=== PATIENT | male | born 1955 | race African-American/Black ===

== ENCOUNTER 2019-06-06 20:12 | Inpatient (IN) | payer MEDICARE ==
[2019-06-06 20:46] LABS: #Eosinphils 0.1 thou/uL (0.0-0.7); #Lymphocytes 1.4 thou/uL (1.20-3.40); #Monocytes 0.4 thou/uL (0.11-0.59); %Basophils 0.9 % (0.0-1.0); %Eosinophils 1.6 % (0.0-10.0); %Lymphocytes 36.8 % (21.0-51.0); %Monocytes 9.4 % (0.0-10.0); %Neutrophils 51.3 % (42.0-75.0); Hemoglobin 14.4 g/dL (14.0-18.0); Mean Corpuscular HGB CONC 33.7 g/dL (32.0-36.0); Mean Corpuscular Volume 71.2 fL (78.0-98.0); Mean Platelet Volume 10.9 fL (7.4-10.4); Platelet Count 126 thou/uL (130-400); RBC Distribution Width 13.3 % (11.5-14.5); Red Blood Cell (RBC) Count 5.99 mill/uL (4.70-6.10); White Blood Cell (WBC) Count 3.9 thou/uL (4.8-10.8)
--- NOTE | 2019-06-06 21:03 | RAD ---
PORTABLE AP CHEST X-RAY: 06/06/19 HISTORY: Syncope and collapse. COMPARISON: 05/17/19. FINDINGS: Dual lead left subclavian AICD device remains in place. The cardiac silhouette remains enlarged. The pulmonary vasculature is within normal limits. The lungs are clear. There has been no interval change from prior exam. IMPRESSION: No acute cardiopulmonary process. POS: [facility]
[2019-06-06 21:05] LABS: ALT (SGPT) 16 U/L (8-55); AST (SGOT) 15 U/L (5-34); Albumin 4.3 g/dL (3.4-4.8); Alkaline Phosphatase 53 U/L (40-150); Anion Gap 15 mmol/L (10-20); BUN (Urea Nitrogen) 21 mg/dL (8.4-25.7); Bilirubin, Total 0.5 mg/dL (0.2-1.2); Calc. Creatinine Clearance 0 mL/min (70-130); Calcium 9.4 mg/dL (7.8-10.44); Carbon Dioxide 23 mmol/L (23-31); Chloride 106 mmol/L (98-107); Estimated GFR-MDRD 70; Globulin 2.9 g/dL (2.4-3.5); Glucose 111 mg/dL (80-115); Potassium 3.8 mmol/L (3.5-5.1); Protein, Total 7.2 g/dL (5.8-8.1); Sodium 140 mmol/L (136-145)
[2019-06-06] MEDS ORDERED: hydrALAZINE 20 MG/ML VIAL SLOW IVP PRN (22:28)
[2019-06-06] MEDS ORDERED: Bisacodyl 5 MG TAB PO PRN (22:28)
[2019-06-06] MEDS ORDERED: cloNIDine 0.1 MG TAB PO PRN (22:28)
[2019-06-06] MEDS ORDERED: Acetaminophen 325 MG TAB PO PRN (22:28)
[2019-06-06] MEDS ORDERED: Nitroglycerin 0.4 MG TAB (25 Tab Bottle) SL PRN (22:28)
[2019-06-06] MEDS ORDERED: Loratadine 10 MG TAB PO PRN (22:28)
[2019-06-06] MEDS ORDERED: Sodium Chloride 0.65% Nasal 44 ML BOT EA NARE PRN (22:28)
[2019-06-06] MEDS ORDERED: Benzonatate 100 MG CAP PO PRN (22:28)
[2019-06-06] MEDS ORDERED: Ondansetron PF 4 MG/2 ML Vial IVP PRN (22:28)
[2019-06-06] MEDS ORDERED: Senokot S 8.6-50 MG TAB PO PRN (22:28)
[2019-06-06] MEDS ORDERED: Calcium Carbonate 500 MG ChewTAB PO PRN (22:28)
[2019-06-06] MEDS ORDERED: Diabetic Tussin 200 MG/10 ML UDCUP PO PRN (22:28)
[2019-06-06] MEDS ORDERED: Mag-Al 1200 mg/1200 mg/30 ML UDCUP PO PRN (23:30)
[2019-06-07 00:05] LABS: Troponin I 0.012 ng/mL (< 0.028)
[2019-06-07] MEDS: Sodium Chloride 0.9% 1,000 ML IV SCH (00:05)
--- NOTE | 2019-06-07 00:10 | HP ---
PRIMARY CARE PHYSICIAN: Out of town. CHIEF COMPLAINT: Passing out. HISTORY OF PRESENTING ILLNESS: Mr. Forbes is a pleasant 63-year-old Afro-[place] male with past medical history of cardiomyopathy with AICD in place as well as history of hypertension, chronic low back pain, and CVA in 2016, who presented to the ER with above-mentioned complaint. History is mainly obtained by the patient himself and electronic medical records have been reviewed. Mr. Forbes reports that he has been feeling fine up until this morning. 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 He remembers all of this episodes and denies any prodrome of symptoms. He denies any recent illnesses, fever, or chills. He denies any chest pain, shortness of breath today or in the last few days. He has not noticed any excessive swelling or fluid retention either. He was down on the floor for few seconds but according to his daughter present in the room, the quaker members felt that he was not breathing and they could not feel a pulse, so they started to do CPR and EMS was called. The patient was awake and had pulses for the EMS, but he did have vomiting multiple times on the scene. He denied getting a shock from his defibrillator tonight. He was brought into the ER and received Zofran en route. Upon presentation to the emergency room, his blood pressure was 157/97 with a pulse of 70, and he was saturating 100% on room air. His 12-lead EKG showed atrial paced rhythm without any acute ST or T-wave changes. His chest x-ray was negative for any evidence of pulmonary edema or infiltrates. His AICD was interrogated and it was normal without any evidence of recent arrhythmia or any shocks today. His cardiac enzymes were also within normal limits as was his rest of his blood work. He has chronic thrombocytopenia and his platelet count was 126. He feels much better now and is quite comfortable. He was, however, seen in the emergency room two weeks ago for complaints of hiccups and today also describes that he does get heartburn easily. Otherwise, he denies any recent illnesses. PAST MEDICAL HISTORY: 1. History of cardiomyopathy versus bradycardia requiring AICD placement. The patient is a poor historian and he does not have EMR in our system. 2. Hypertension. 3. Chronic low back pain. He follows up with Pain injections by Dr. Mac. He last received three steroid injections about a week ago. 4. CVA in 2016 with multiple mini strokes. PAST SURGICAL HISTORY: 1. ICD placement 2014. 2. Hernia repair. PSYCHIATRIC HISTORY: None. SOCIAL HISTORY: He lives at home with family. Denies any drug, alcohol, or tobacco abuse. FAMILY HISTORY: No significant family history of coronary artery disease or stroke. ALLERGIES: NO KNOWN MEDICATION ALLERGIES. CURRENT MEDICATIONS: As listed in the ER records: 1. Plavix 75 mg daily. 2. Protonix 40 mg daily. 3. Tamsulosin 0.4 mg daily. 4. Tizanidine 2 mg at bedtime. 5. Entresto daily. REVIEW OF SYSTEMS: A 14-point review of system is done. It is negative except for those mentioned in the history and physical. LABORATORY DATA: CBC shows WBCs 3.9, which was 4.0 two weeks ago, platelet count of 126, otherwise unremarkable. Serum chemistries essentially within normal limit. Troponin less than 0.010. BNP 103. Chest x-ray by my review shows no evidence of pleural effusion, edema, or infiltrate. PHYSICAL EXAMINATION: VITAL SIGNS: Most recent blood pressure 141/85, pulse is 63, respirations 19, temperature 98.9, saturating 98% on room air. GENERAL: No acute distress. Lying comfortably in bed. Family is at bedside. He is awake, alert, and oriented x3. HEENT: Mucous membrane is moist and pink. No oropharyngeal exudate or erythema. Head is normocephalic and atraumatic. Pupils are equal and reactive to light and accommodation. Extraocular movement intact. NECK: Supple without any lymphadenopathy, JVD, or bruit. CHEST: Clear to auscultation without any wheezing, rales, or rhonchi. Rate and rhythm are regular without any murmurs, rubs, or gallops. ABDOMEN: Soft, nontender, nondistended. He does not have any epigastric or right upper quadrant tenderness. No rebound, guarding, or rigidity. EXTREMITIES: Free of any cyanosis, clubbing, or edema. NEUROLOGICAL: Nonfocal. SKIN: Free of any rashes or bruises. Feels warm and dry to touch. PSYCHIATRIC: Normal affect. IMPRESSION AND PLAN: 1. Syncope. It is unclear as to what transpired in the quaker. It is not clear if he actually lost the pulse. CPR was initiated just because somebody could not find a pulse. Nevertheless, he will be admitted on telemetry unit for further evaluation. We will go ahead and obtain a transthoracic echocardiogram as he reports that one has not been done in a while. His AICD was interrogated and has been working fine. We will also obtain orthostatics as most of his symptoms suggest vasovagal episode rather than a cardiac or neurogenic episode. We will also obtain a carotid Doppler ultrasound given his history of cerebrovascular accident and as for the same reason, we will obtain an MRI of the brain, though the likely heard of a stroke is rather low given the presentation with syncope without any focal neurological deficits. Transient ischemic attack can be likely. We will restart his cardio prudent medication including Plavix and Entresto for now. He does not appear clinically dehydrated, but we will resuscitate him with gentle IV fluids given few episodes of vomiting that he has. Otherwise, symptomatic and supportive care will be initiated. We will also continue serial cardiac enzymes. Also, check urinalysis to rule out urinary tract infection as a cause of syncopal episode, though he denies any dysuria or frequency. He does complain of heartburn, which could have led to his vasovagal episode. We will continue his Protonix and add Maalox p.r.n. 2. Cardiomyopathy status post AICD. Continue his home medications of Plavix and Entresto. He is on THANG inhibitor. He is not on any beta laurie or aspirin at this time, and the reasons are unknown. 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 3. Hypertension. Resume Entresto for now and add p.r.n. antihypertensives. 4. Chronic back pain. The patient is quite comfortable for now. 5. Code status, full code discussed with the patient. DISPOSITION: Mr. Forbes is currently being admitted to observation unit on telemetry for workup for syncope. Estimated length of stay at this time is less than 2 midnights. Further management will depend upon his clinical course. Job ID: [id number]
[2019-06-07 01:28] LABS: Bacteria/HPF None Seen HPF (None Seen); Bilirubin Negative (Negative); Blood, Urine Negative (Negative); Clarity Clear (Clear); Glucose, Urine (Dipstick) Normal (Negative); Leukocyte Negative Leu/uL (Negative); Nitrite Negative (Negative); Protein, Urine (Dipstick) 10 mg/dL (Neg-Trace); RBC/HPF 0-3 HPF (0-3); Squamous Epithelial None Seen HPF (0-3); Urobilinogen Normal mg/dL (Less than 2); WBC/HPF 0-3 HPF (0-3)
[2019-06-07 01:31] LABS: Urine Culture Reflex No No
[2019-06-07 02:52] LABS: Anion Gap 10 mmol/L (10-20); BUN (Urea Nitrogen) 19 mg/dL (8.4-25.7); Calc. Creatinine Clearance 59 mL/min (70-130); Calcium 9.4 mg/dL (7.8-10.44); Carbon Dioxide 28 mmol/L (23-31); Chloride 106 mmol/L (98-107); Estimated GFR-MDRD 68; Glucose 187 mg/dL (80-115); Sodium 140 mmol/L (136-145)
[2019-06-07 02:56] LABS: Troponin I 0.039 ng/mL (< 0.028)
[2019-06-07 03:00] LABS: #Lymphocytes 0.7 thou/uL (1.20-3.40); #Monocytes 0.3 thou/uL (0.11-0.59); #Neutrophils 5.9 thou/uL (1.40-6.50); %Basophils 0.2 % (0.0-1.0); %Eosinophils 0.3 % (0.0-10.0); %Lymphocytes 9.6 % (21.0-51.0); %Monocytes 4.3 % (0.0-10.0); %Neutrophils 85.7 % (42.0-75.0); Hemoglobin 13.7 g/dL (14.0-18.0); Mean Corpuscular HGB CONC 33.9 g/dL (32.0-36.0); Mean Corpuscular Hemoglobin 24.2 pg (27.0-31.0); Mean Corpuscular Volume 71.3 fL (78.0-98.0); Mean Platelet Volume 10.6 fL (7.4-10.4); Platelet Count 114 thou/uL (130-400); RBC Distribution Width 13.1 % (11.5-14.5); Red Blood Cell (RBC) Count 5.68 mill/uL (4.70-6.10); White Blood Cell (WBC) Count 6.9 thou/uL (4.8-10.8)
[2019-06-07] MEDS ORDERED: Famotidine 20 MG TAB PO SCH (09:00)
[2019-06-07] MEDS: Sacubitril 49 MG/Valsartan 51 MG TABLET PO SCH ×2 (09:32→22:05)
[2019-06-07] MEDS: Enoxaparin Sodium 40 MG/0.4 ML SYRINGE SC SCH (09:32)
[2019-06-07] MEDS: Clopidogrel Bisulfate 75 MG TAB PO SCH (09:32)
--- NOTE | 2019-06-07 11:06 | ULT ---
CAROTID ULTRASOUND: Comparison: None. History: Syncope. Technique: Multiplanar grayscale and color doppler images were obtained in a carotid ultrasound. Spec tral analysis of the doppler waveforms were performed. FINDINGS: No significant plaque is seen in either internal or common carotid artery. The doppler waveforms are normally. Peak systolic velocity in the right ICA is 72 cm/sec. Peak systolic velocity in the right CCA is 91 c m/sec. The right ICA/CCA ratio is 0.8 Peak systolic velocity in the left ICA is 66 cm/sec. Peak systolic velocity in the left CCA is 91 cm/ sec. The left ICA/CCA ratio is 0.7. Both vertebral arteries demonstrate antegrade flow without focal stenosis. IMPRESSION: 1. No significant abnormality. POS: [facility]
--- NOTE | 2019-06-07 16:25 | PDOC.HOSPP ---
- Subjective Subjective: no chest pain or sob now feels better family at bedside He sees a twister tender and EP physician out of [place] area - Objective Vital Signs & Weight: Vital Signs (12 hours) Temp Pulse Resp BP BP Pulse Ox 06/07/19 15:17 98.4 F 54 L 16 124/81 98 06/07/19 12:47 98.0 F 60 20 138/78 98 06/07/19 07:56 97.8 F 52 L 16 123/71 97 06/07/19 05:00 98.4 F 66 16 127/59 L 98 Weight Weight 160 lb 2 oz I&O: 06/06/19 06/07/19 06/08/19 06:59 06:59 06:59 Intake Total 600 Output Total 400 Balance -400 600 Result Diagrams: 06/07/19 02:20 06/07/19 02:20 ROS - Review of Systems All systems: All other ROS were reviewed and found negative. - Medication Medications: Active Medications Generic Name Dose Route Start Last Admin Trade Name Davidq PRN Reason Stop Dose Admin Clopidogrel Bisulfate 75 mg 06/07/19 09:00 06/07/19 09:32 Plavix PO 75 mg DAILY MAHIN Administration Enoxaparin Sodium 40 mg 06/07/19 09:00 06/07/19 09:32 Lovenox SC 40 mg 0900 MAHIN Administration Sodium Chloride 1,000 mls @ 50 mls/hr 06/06/19 22:30 06/07/19 00:05 Normal Saline 0.9% IV 1,000 mls .Q20H MAHIN Administration Pantoprazole Sodium 40 mg 06/07/19 09:00 06/07/19 09:32 Protonix PO 40 mg DAILY MAHIN Administration Sacubitril/Valsartan 1 tab 06/07/19 09:00 06/07/19 09:32 Entresto 49 Mg-51 Mg Tablet PO 1 tab BID MAHIN Administration - Exam NAD, awake alert Eye: PERRL, anicteric sclera ENT: normocephalic atraumatic, moist mucosa Neck: supple, no JVD Heart: RRR, no murmur Respiratory: no wheezes, no rales Gastrointestinal: soft, non-tender, normal bowel sounds Extremities: no cyanosis, no clubbing Neurological: CN's grossly intact, no focal deficits Musculoskeletal: normal tone, normal strength Psychiatric: normal affect, A&O x 3 Hosp A/P (1) V-tach Code(s): I47.2 - VENTRICULAR TACHYCARDIA Status: Acute (2) Syncope Code(s): R55 - SYNCOPE AND COLLAPSE Status: Acute (3) Cardiomyopathy Code(s): I42.9 - CARDIOMYOPATHY, UNSPECIFIED Status: Chronic (4) HTN (hypertension) Code(s): I10 - ESSENTIAL (PRIMARY) HYPERTENSION Status: Chronic Qualifiers: Hypertension type: essential hypertension Qualified Code(s): I10 - Essential (primary) hypertension (5) BPH (benign prostatic hyperplasia) Code(s): N40.0 - BENIGN PROSTATIC HYPERPLASIA WITHOUT LOWER URINRY TRACT SYMP Status: Chronic Qualifiers: Lower urinary tract symptom presence: symptoms absent Qualified Code(s): N40.0 - Benign prostatic hyperplasia without lower urinary tract symptoms - Plan last defibrillator shock he had was 1 yr back hemostable now will consult , has multiple episodes of vtach mostly non sustained low rate on aicd interrogation change status to inpatient might need amiodarone/antiarrhymthmics based on ef await echo results continue plavix, flomax, entresto, will add small dose lopressor.
[2019-06-07] MEDS: Metoprolol Tartrate 25 MG TAB PO SCH (22:05)
[2019-06-08 04:59] VITALS: BMI 27.2
[2019-06-08] MEDS: Sacubitril 49 MG/Valsartan 51 MG TABLET PO SCH ×2 (08:45→20:46)
[2019-06-08] MEDS: Metoprolol Tartrate 25 MG TAB PO SCH ×2 (08:47→20:46)
[2019-06-08] MEDS: Enoxaparin Sodium 40 MG/0.4 ML SYRINGE SC SCH (08:47)
[2019-06-08] MEDS: Clopidogrel Bisulfate 75 MG TAB PO SCH (08:47)
--- NOTE | 2019-06-08 11:40 | CON ---
DATE OF CONSULTATION: REASON FOR CONSULTATION: Syncope. HISTORY OF PRESENT ILLNESS: Mr. Forbes is a 63-year-old gentleman. 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 Some other worship members were able to get him on the ground. They said there was no pulse and they started CPR and the ambulance then was called and he was brought to [facility]. He has history of apparently a cardiomyopathy. He said he underwent cardiac catheterization, did not have any obstructive coronary artery disease according to his understanding. He did have a defibrillator implantation. The patient is feeling fine now. He did not have chest pain with this. MEDICATIONS: 1. Tamsulosin 0.4 mg twice a day. 2. Clopidogrel. 3. Entresto. 4. Metoprolol. ALLERGIES: NONE KNOWN. SOCIAL HISTORY: Lives at home with his family. PSYCHIATRIC HISTORY: Negative. PREVIOUS SURGICAL HISTORY: Defibrillator in 2015, [employer]. OTHER HISTORY: History of chronic low back pain. REVIEW OF SYSTEMS: CONSTITUTIONAL: No significant weight gain or loss. VISION: No changes. HEARING: No changes. PULMONARY: No cough or wheezing. GASTROINTESTINAL: No nausea, vomiting, or diarrhea. SKIN: No rashes. NEUROLOGIC: No unilateral weakness or numbness. PSYCHIATRIC: No unusual depression or anxiety. HEMATOLOGIC: No unusual bruising. GENITOURINARY: No burning with urination. PHYSICAL EXAMINATION: GENERAL: This is a pleasant 63-year-old gentleman, resting comfortably, in no distress. VITAL SIGNS: Blood pressure 135/81; pulse is 60, it is regular. HEENT: Eyes; sclerae are nonicteric. Mouth; mucous membranes moist. NECK: Supple. No lymphadenopathy. LUNGS: Clear. No wheezing, rales, or rhonchi. CARDIAC: Normal S1. Normal S2. There is no murmur, rub, or gallop. ABDOMEN: Soft and nontender. No hepatosplenomegaly. EXTREMITIES: Warm and dry. No clubbing or cyanosis. There is no edema. NEUROLOGIC: He is alert and oriented. PERTINENT LABORATORY DATA: Hemoglobin is 13.7. Creatinine is 1.28. BNP 103.6. Troponin peak 0.039. IMAGING DATA: The pacemaker defibrillator was apparently interrogated and from my understanding show dysrhythmias. EKG shows atrial paced, ventricular sensed rhythm. ASSESSMENT: 1. Syncopal episode of unknown etiology. 2. From his history, nonischemic cardiomyopathy. PLAN: 1. 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 2. We will try to interrogate this device to make sure there has not been any arrhythmias. Job ID: [id number]
[2019-06-08] MEDS: Sodium Chloride 0.9% 1,000 ML IV SCH (12:44)
--- NOTE | 2019-06-08 12:49 | CON ---
DATE OF CONSULTATION: 06/08/2019 REASON FOR CONSULTATION: Syncope. REQUESTING CONSULTATION: Wyatt Rausch MD HISTORY OF PRESENTING ILLNESS: Dread Forbes is a 63-year-old gentleman. He has a known history of cardiomyopathy and evidently has a history of ventricular tachycardia. He had a defibrillator implanted ([employer] dual-chamber device) in 2014. He is subsequently moved to the [facility], and he is followed by Dr. Rausch. He was in his usual state of health until 2 days ago on 06/06/2019 when he was singing in the choir at [employer] and felt lightheaded and hot. He then lost consciousness. He is unclear how long he was out, but the witnesses think that it was less than a minute. He was resuscitated by bystanders, someone performed chest compressions as they felt that he did not have a palpable pulse. By the time EMS had arrived, he already had regained consciousness. There was no evidence of postictal state. Because he has a defibrillator implanted, it was interrogated in the emergency room and did not find any malignant arrhythmias to correlate with his event. I was asked to reinterrogate and confirm this fact. Currently, he is without symptoms. He has had no subsequent symptoms of chest pain, lightheadedness, shortness of breath, or syncope. He has been on telemetry and has remained in sinus rhythm with atrial pacing. No ventricular events. PAST MEDICAL HISTORY: Significant for, 1. Cardiomyopathy, unclear whether this is ischemia or [id number], but evidently was severe enough to warrant a defibrillator implantation in 2014. 2. Evidence of ventricular tachycardia based on stored electrograms from his interrogated defibrillator today. Most of these events have been nonsustained life of the device. However, in the last year, he has had a number of nonsustained events and a few sustained events, which were successfully pace terminated with his defibrillator most recently, May 10. He has never had a defibrillator shock since it was implanted. This does not correlate with his event on 06/06. Ironically on that day, his device reported no arrhythmias whatsoever either atrial or ventricular. 3. Remote history of CVA, unclear etiology, but evidently he had a cerebellar infarct a couple of years ago for which he was treated conservatively. CURRENT MEDICATIONS: See reconciled list in chart. FAMILY HISTORY: Significant for heart disease and hypertension. SOCIAL HISTORY: The patient does not smoke, drink heavily, use illicit drugs. REVIEW OF SYSTEMS: CONSTITUTIONAL: No fever, chills, night sweats, or other constitutional findings. HEENT: No change in vision or hearing. NEUROLOGIC: No TIAs, strokes or seizures. PULMONARY: No reactive airway disease, obstructive lung disease, or recurrent pneumonias. GASTROINTESTINAL: No acid peptic disease, melena, or hematochezia. GENITOURINARY: No frequency or dysuria. CARDIOVASCULAR: No claudication. ENDOCRINE: No diabetes or thyroid dysfunction. HEMATOLOGIC: No history of blood dyscrasias. MUSCULOSKELETAL: No arthritis, arthralgias or gout. PSYCHIATRIC: No depression or anxiety. DERMATOLOGIC: No rashes or skin cancer. AUTOIMMUNE: No autoimmune disease. Except as outlined in the HPI. PHYSICAL EXAMINATION: VITAL SIGNS: Blood pressure 130/70, pulse 70 and regular, respirations 18. NECK: Supple with no obvious JVD, sitting at a 45-degree angle. HEART: Demonstrates regular rate. Normal S1, S2. LUNGS: Clear with symmetric breath sounds. ABDOMEN: Soft. EXTREMITIES: Without any edema. SKIN: Warm and dry. IMAGING STUDIES: Electrocardiogram demonstrates atrial pacing, ventricular sensing, narrow QRS complex, device was interrogated again today by me. Device is a [employer] device implanted in 2014. He has an estimated 3 years longevity remaining on the device from a battery standpoint. He has had multiple events of nonsustained VT over the last year, none of them lasting more than 5 to 10 seconds, except for a few that lasted 16 to 17 seconds requiring overdrive pacing. Overdrive pacing was successful in terminating these arrhythmias on every occasion and none of these correlate with the patient's events from June 06. MEDICAL DECISION MAKING: I had a 15-minute discussion Mr. Forbes and his family. We talked about treatment options and alternatives. His symptoms certainly sound worrisome for malignant arrhythmia; however, the device that is implanted is functioning properly, and while it has reported episodes of ventricular tachycardia as recently as May 10, he had absolutely no episodes on the day of the event. Because he had some prodrome of nausea and a hot sensation prior to losing consciousness, it is more likely that this is neurally mediated mechanism as opposed to an arrhythmic one. RECOMMENDATION: 1. Would consider beta-laurie therapy to treat presumed neurocardiogenic syncope. 2. Would continue with ICU prescription unchanged. Job ID: [id number]
--- NOTE | 2019-06-08 18:19 | PDOC.HOSPP ---
- Subjective Subjective: feels better, no further episodes of passing out or palpitations no chest pain or sob - Objective Vital Signs & Weight: Vital Signs (12 hours) Temp Pulse Resp BP Pulse Ox 06/08/19 16:19 98.0 F 50 L 17 124/82 95 06/08/19 12:15 98.2 F 50 L 18 155/86 H 96 06/08/19 08:47 96 06/08/19 07:06 99.6 F 55 L 16 135/81 97 Weight Weight 163 lb 9.6 oz I&O: 06/07/19 06/08/19 06/09/19 06:59 06:59 06:59 Intake Total 3560 880 Output Total 400 2225 180 Balance -400 1335 700 Result Diagrams: 06/07/19 02:20 06/07/19 02:20 ROS - Review of Systems All systems: All other ROS were reviewed and found negative. - Medication Medications: Active Medications Generic Name Dose Route Start Last Admin Trade Name Freq PRN Reason Stop Dose Admin Clopidogrel Bisulfate 75 mg 06/07/19 09:00 06/08/19 08:47 Plavix PO 75 mg DAILY MAHIN Administration Enoxaparin Sodium 40 mg 06/07/19 09:00 06/08/19 08:47 Lovenox SC 40 mg 0900 MAHIN Administration Metoprolol Tartrate 25 mg 06/07/19 21:00 06/08/19 08:47 Lopressor PO 25 mg BID MAHIN Administration Pantoprazole Sodium 40 mg 06/07/19 09:00 06/08/19 08:47 Protonix PO 40 mg DAILY MAHIN Administration Sacubitril/Valsartan 1 tab 06/07/19 09:00 06/08/19 08:45 Entresto 49 Mg-51 Mg Tablet PO 1 tab BID MAHIN Administration Sodium Chloride 10 ml 06/08/19 09:00 06/08/19 08:47 Flush - Normal Saline IVF 10 ml Q12HR MAHIN Administration - Exam NAD, awake alert Eye: PERRL, anicteric sclera ENT: no oropharyngeal lesions, moist mucosa Neck: supple, no JVD Heart: RRR, no murmur Respiratory: no wheezes, no rales Gastrointestinal: soft, non-tender, non-distended, normal bowel sounds Neurological: CN's grossly intact, no focal deficits Psychiatric: normal affect, A&O x 3 Hosp A/P (1) V-tach Code(s): I47.2 - VENTRICULAR TACHYCARDIA Status: Acute (2) Syncope Code(s): R55 - SYNCOPE AND COLLAPSE Status: Acute (3) Cardiomyopathy Code(s): I42.9 - CARDIOMYOPATHY, UNSPECIFIED Status: Chronic (4) HTN (hypertension) Code(s): I10 - ESSENTIAL (PRIMARY) HYPERTENSION Status: Chronic Qualifiers: Hypertension type: essential hypertension Qualified Code(s): I10 - Essential (primary) hypertension (5) BPH (benign prostatic hyperplasia) Code(s): N40.0 - BENIGN PROSTATIC HYPERPLASIA WITHOUT LOWER URINRY TRACT SYMP Status: Chronic Qualifiers: Lower urinary tract symptom presence: symptoms absent Qualified Code(s): N40.0 - Benign prostatic hyperplasia without lower urinary tract symptoms - Plan echo shows ef of 25% cardo and ep consultations were done is on lopressor, entresto, plavix, flomax await records from his cardiologists office from [facility]. hemostable dc plan per cardio/EP adv
[2019-06-09] MEDS: Enoxaparin Sodium 40 MG/0.4 ML SYRINGE SC SCH (09:27)
[2019-06-09] MEDS: Clopidogrel Bisulfate 75 MG TAB PO SCH (09:27)
[2019-06-09] MEDS: Metoprolol Tartrate 25 MG TAB PO SCH ×2 (09:27→20:48)
[2019-06-09] MEDS: Sacubitril 49 MG/Valsartan 51 MG TABLET PO SCH ×2 (09:27→20:49)
[2019-06-09] MEDS ORDERED: Communication Order-Pharmacy FS SCH (12:30)
--- NOTE | 2019-06-09 12:32 | PDOC.HOSPP ---
- Subjective Subjective: no chest pain or palp is ambulating in room no sob or new complaints - Objective Vital Signs & Weight: Vital Signs (12 hours) Temp Pulse Resp BP Pulse Ox 06/09/19 12:03 98.0 F 53 L 20 125/81 98 06/09/19 07:30 98.5 F 61 20 148/95 H 99 06/09/19 04:00 98.1 F 50 L 18 121/73 99 Weight Weight 163 lb 9.6 oz I&O: 06/08/19 06/09/19 06/10/19 06:59 06:59 06:59 Intake Total 3560 880 300 Output Total 2225 180 Balance 1335 700 300 Result Diagrams: 06/07/19 02:20 06/07/19 02:20 ROS - Review of Systems All systems: All other ROS were reviewed and found negative. - Medication Medications: Active Medications Generic Name Dose Route Start Last Admin Trade Name Freq PRN Reason Stop Dose Admin Clopidogrel Bisulfate 75 mg 06/07/19 09:00 06/09/19 09:27 Plavix PO 75 mg DAILY MAHIN Administration Enoxaparin Sodium 40 mg 06/07/19 09:00 06/09/19 09:27 Lovenox SC 40 mg 0900 MAHIN Administration Metoprolol Tartrate 25 mg 06/07/19 21:00 06/09/19 09:27 Lopressor PO 25 mg BID MAHIN Administration Pantoprazole Sodium 40 mg 06/07/19 09:00 06/09/19 09:27 Protonix PO 40 mg DAILY MAHIN Administration Sacubitril/Valsartan 1 tab 06/07/19 09:00 06/09/19 09:27 Entresto 49 Mg-51 Mg Tablet PO 1 tab BID MAHIN Administration Sodium Chloride 10 ml 06/08/19 09:00 06/09/19 09:28 Flush - Normal Saline IVF 10 ml Q12HR MAHIN Administration - Exam NAD, awake alert Eye: PERRL, anicteric sclera ENT: no oropharyngeal lesions, moist mucosa Neck: supple, no JVD Heart: RRR, no murmur Respiratory: no wheezes, no rales Gastrointestinal: soft, non-tender, normal bowel sounds Extremities: no cyanosis, no edema Skin: normal turgor, no lesions Neurological: CN's grossly intact, no focal deficits Musculoskeletal: normal tone, no muscle wasting Psychiatric: normal affect, A&O x 3 Hosp A/P (1) V-tach Code(s): I47.2 - VENTRICULAR TACHYCARDIA Status: Acute (2) Syncope Code(s): R55 - SYNCOPE AND COLLAPSE Status: Resolved (3) Cardiomyopathy Code(s): I42.9 - CARDIOMYOPATHY, UNSPECIFIED Status: Chronic (4) HTN (hypertension) Code(s): I10 - ESSENTIAL (PRIMARY) HYPERTENSION Status: Chronic Qualifiers: Hypertension type: essential hypertension Qualified Code(s): I10 - Essential (primary) hypertension (5) BPH (benign prostatic hyperplasia) Code(s): N40.0 - BENIGN PROSTATIC HYPERPLASIA WITHOUT LOWER URINRY TRACT SYMP Status: Chronic Qualifiers: Lower urinary tract symptom presence: symptoms absent Qualified Code(s): N40.0 - Benign prostatic hyperplasia without lower urinary tract symptoms - Plan echo shows ef of 25% is on entresto, plavix, lopressor, flomax his 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
[2019-06-09] MEDS: Tamsulosin HCl 0.4 MG CAP PO SCH (20:48)
[2019-06-10] MEDS: Metoprolol Tartrate 25 MG TAB PO SCH ×2 (08:55→21:26)
[2019-06-10] MEDS: Clopidogrel Bisulfate 75 MG TAB PO SCH (08:55)
[2019-06-10] MEDS: Enoxaparin Sodium 40 MG/0.4 ML SYRINGE SC SCH (08:55)
[2019-06-10] MEDS: Sacubitril 49 MG/Valsartan 51 MG TABLET PO SCH ×2 (08:55→21:26)
--- NOTE | 2019-06-10 11:28 | PDOC.HOSPP ---
- Subjective Subjective: no chest pain or palp feels good - Objective Vital Signs & Weight: Vital Signs (12 hours) Temp Pulse Resp BP Pulse Ox 06/10/19 07:40 100 06/10/19 07:20 97.8 F 57 L 20 121/78 100 06/10/19 04:00 97.3 F L 52 L 19 127/81 98 06/10/19 00:00 59 L 135/80 97 Weight Weight 163 lb 9.6 oz I&O: 06/09/19 06/10/19 06/11/19 06:59 06:59 06:59 Intake Total 880 1380 300 Output Total 180 Balance 700 1380 300 Result Diagrams: 06/07/19 02:20 06/07/19 02:20 ROS - Review of Systems All systems: All other ROS were reviewed and found negative. - Medication Medications: Active Medications Generic Name Dose Route Start Last Admin Trade Name Freq PRN Reason Stop Dose Admin Clopidogrel Bisulfate 75 mg 06/07/19 09:00 06/10/19 08:55 Plavix PO 75 mg DAILY MAHIN Administration Enoxaparin Sodium 40 mg 06/07/19 09:00 06/10/19 08:55 Lovenox SC 06/10/19 22:00 40 mg 0900 MAHIN Administration Metoprolol Tartrate 25 mg 06/07/19 21:00 06/10/19 08:55 Lopressor PO 25 mg BID MAHIN Administration Pantoprazole Sodium 40 mg 06/07/19 09:00 06/10/19 08:55 Protonix PO 40 mg DAILY MAHIN Administration Sacubitril/Valsartan 1 tab 06/07/19 09:00 06/10/19 08:55 Entresto 49 Mg-51 Mg Tablet PO 1 tab BID MAHIN Administration Sodium Chloride 10 ml 06/08/19 09:00 06/10/19 08:55 Flush - Normal Saline IVF 10 ml Q12HR MAHIN Administration Tamsulosin HCl 0.4 mg 06/09/19 21:00 06/09/19 20:48 Flomax PO 0.4 mg HS MAHIN Administration - Exam NAD, awake alert Eye: PERRL, anicteric sclera ENT: no oropharyngeal lesions, moist mucosa Neck: supple, no JVD Heart: RRR, no murmur Respiratory: no wheezes, no rales Gastrointestinal: soft, non-tender, normal bowel sounds Extremities: no cyanosis, no edema Neurological: CN's grossly intact, no focal deficits Musculoskeletal: normal tone, normal strength Psychiatric: normal affect, A&O x 3 Hosp A/P (1) V-tach Code(s): I47.2 - VENTRICULAR TACHYCARDIA Status: Acute (2) Syncope Code(s): R55 - SYNCOPE AND COLLAPSE Status: Resolved (3) Cardiomyopathy Code(s): I42.9 - CARDIOMYOPATHY, UNSPECIFIED Status: Chronic (4) HTN (hypertension) Code(s): I10 - ESSENTIAL (PRIMARY) HYPERTENSION Status: Chronic Qualifiers: Hypertension type: essential hypertension Qualified Code(s): I10 - Essential (primary) hypertension (5) BPH (benign prostatic hyperplasia) Code(s): N40.0 - BENIGN PROSTATIC HYPERPLASIA WITHOUT LOWER URINRY TRACT SYMP Status: Chronic Qualifiers: Lower urinary tract symptom presence: symptoms absent Qualified Code(s): N40.0 - Benign prostatic hyperplasia without lower urinary tract symptoms - Plan hemostable for cath in am continue plavix, entresto, lopressor, flomax ef of 25% with recurrent vtac (mostly non sustained) for cath in am
[2019-06-10] MEDS: Tamsulosin HCl 0.4 MG CAP PO SCH (21:26)
[2019-06-11] MEDS: Clopidogrel Bisulfate 75 MG TAB PO SCH (05:49)
[2019-06-11] MEDS ORDERED: Sodium Chloride 0.9% 1,000 ML IV SCH (06:00)
[2019-06-11] MEDS ORDERED: Lidocaine 1% (PF) 30 ML VIAL ONE (06:39)
[2019-06-11] MEDS ORDERED: Midazolam HCl 2 mg/2 ml Vial ONE (07:13)
[2019-06-11] MEDS ORDERED: Fentanyl 100 MCG/2 ML VIAL ONE (07:13)
[2019-06-11] MEDS ORDERED: Atropine Sulfate 1 mg/10 ml Syringe ONE (07:28)
[2019-06-11] MEDS ORDERED: Nitroglycerin 100MG/250ML BOT 250 ML ONE (08:04)
[2019-06-11] MEDS ORDERED: Sodium Chloride 0.9% 200 ML IV PRN (08:32)
[2019-06-11] MEDS ORDERED: Acetaminophen/Codeine 30-300mg Tablet PO PRN ×2 (08:32)
[2019-06-11] MEDS ORDERED: Nitroglycerin 0.4 MG TAB (25 Tab Bottle) SL PRN (08:32)
[2019-06-11 10:51] LABS: #Lymphocytes 0.9 thou/uL (1.20-3.40); #Monocytes 0.3 thou/uL (0.11-0.59); #Neutrophils 3.6 thou/uL (1.40-6.50); %Basophils 0.1 % (0.0-1.0); %Eosinophils 0.9 % (0.0-10.0); %Lymphocytes 18.5 % (21.0-51.0); %Monocytes 6.3 % (0.0-10.0); %Neutrophils 74.1 % (42.0-75.0); Hemoglobin 13.6 g/dL (14.0-18.0); Mean Corpuscular HGB CONC 32.2 g/dL (32.0-36.0); Mean Corpuscular Hemoglobin 23.1 pg (27.0-31.0); Mean Corpuscular Volume 71.6 fL (78.0-98.0); Mean Platelet Volume 10.4 fL (7.4-10.4); Platelet Count 112 thou/uL (130-400); RBC Distribution Width 13.4 % (11.5-14.5); Red Blood Cell (RBC) Count 5.91 mill/uL (4.70-6.10); White Blood Cell (WBC) Count 4.9 thou/uL (4.8-10.8)
[2019-06-11 10:52] LABS: Anion Gap 9 mmol/L (10-20); BUN (Urea Nitrogen) 18 mg/dL (8.4-25.7); Calc. Creatinine Clearance 71 mL/min (70-130); Calcium 8.9 mg/dL (7.8-10.44); Carbon Dioxide 26 mmol/L (23-31); Chloride 107 mmol/L (98-107); Estimated GFR-MDRD 84; Glucose 100 mg/dL (80-115); Sodium 138 mmol/L (136-145)
[2019-06-11] MEDS ORDERED: Iopamidol 370 76% 100 ML VIAL ONE (11:03)
[2019-06-11 11:24] LABS: Band 1 % (5-11); Eosinophils 2 % (0-10); Lymphocytes 20 % (21-51); MDiff Complete? YES; Microcytosis SLIGHT = 6-15 cells (100X) (0-5/hpf); Monocytes 2 % (0-10); Neutrophil 75 % (42-75); Platelet Morphology Comment Appears Decreased; Polychromasia SLIGHT = 2-3 cells (100X) (0-2/hpf)
[2019-06-11] MEDS: Metoprolol Tartrate 25 MG TAB PO SCH ×2 (11:30→20:39)
--- NOTE | 2019-06-11 13:08 | PDOC.HOSPP ---
- Subjective Subjective: no chest pain or palp or sob - Objective Vital Signs & Weight: Vital Signs (12 hours) Temp Pulse Resp BP Pulse Ox 06/11/19 08:45 97.5 F L 67 16 139/83 98 06/11/19 04:00 98.3 F 49 L 18 127/78 98 Weight Weight 160 lb 8 oz I&O: 06/10/19 06/11/19 06/12/19 06:59 06:59 06:59 Intake Total 1380 1620 Output Total 400 Balance 1380 1220 Result Diagrams: 06/11/19 09:51 06/11/19 09:51 ROS - Review of Systems All systems: All other ROS were reviewed and found negative. - Medication Medications: Active Medications Generic Name Dose Route Start Last Admin Trade Name Lucia PRN Reason Stop Dose Admin Clopidogrel Bisulfate 75 mg 06/07/19 09:00 06/11/19 05:49 Plavix PO 75 mg DAILY MAHIN Administration Sodium Chloride 1,000 mls @ 100 mls/hr 06/11/19 06:00 06/11/19 05:48 Normal Saline 0.9% IV 1,000 mls .Q10H MAHIN Administration Metoprolol Tartrate 25 mg 06/07/19 21:00 06/11/19 11:30 Lopressor PO Not Given BID MAHIN Pantoprazole Sodium 40 mg 06/07/19 09:00 06/11/19 05:49 Protonix PO 40 mg DAILY MAHIN Administration Sodium Chloride 10 ml 06/08/19 09:00 06/11/19 09:37 Flush - Normal Saline IVF Not Given Q12HR MAHIN Tamsulosin HCl 0.4 mg 06/09/19 21:00 06/10/19 21:26 Flomax PO 0.4 mg HS MAHIN Administration - Exam NAD, awake alert Eye: PERRL, anicteric sclera ENT: no oropharyngeal lesions, moist mucosa Neck: supple, no JVD Heart: RRR, no murmur Respiratory: no wheezes, no ronchi Gastrointestinal: soft, non-tender, normal bowel sounds Extremities: no cyanosis, no edema Neurological: CN's grossly intact, no focal deficits Musculoskeletal: normal tone, normal strength Psychiatric: normal affect, A&O x 3 Hosp A/P (1) V-tach Code(s): I47.2 - VENTRICULAR TACHYCARDIA Status: Resolved (2) Syncope Code(s): R55 - SYNCOPE AND COLLAPSE Status: Resolved (3) Cardiomyopathy Code(s): I42.9 - CARDIOMYOPATHY, UNSPECIFIED Status: Chronic (4) HTN (hypertension) Code(s): I10 - ESSENTIAL (PRIMARY) HYPERTENSION Status: Chronic Qualifiers: Hypertension type: essential hypertension Qualified Code(s): I10 - Essential (primary) hypertension (5) BPH (benign prostatic hyperplasia) Code(s): N40.0 - BENIGN PROSTATIC HYPERPLASIA WITHOUT LOWER URINRY TRACT SYMP Status: Chronic Qualifiers: Lower urinary tract symptom presence: symptoms absent Qualified Code(s): N40.0 - Benign prostatic hyperplasia without lower urinary tract symptoms - Plan had cath this am, had long segment narrowing or rca, no intervention also had vasovagal episode with local anesthesia hemostable dc plan per cardio adv continue lopressor, plavix, entresto, flomax
--- NOTE | 2019-06-11 13:49 | PQF ---
ELIZABETH JOSEPH, ALEX CHILD MD [id number] [facility]-296 [id number] CLINICAL DOCUMENTATION IMPROVEMENT CLARIFICATION FORM: ICD-10 Updated PLEASE DO AN ADDENDUM TO THE PROGRESS NOTE WITH ANY DOCUMENTATION UPDATES OR ADDITIONS AND CARRY THROUGH TO DC SUMMARY. THANK YOU. DATE: 06/11/2019 ATTN:DR. ADAMS Please exercise your independent, professional judgment in responding to the clarification form. Clinical indicators are provided on the bottom of this form for your review. Please check appropriate box(s): [ ] NSTEMI (ID type I) [ x] NSTEMI due to Demand Ischemia (AMI Type II) [ ] Demand Ischemia without ID [ x] Other diagnosis _type 2 ID secondary to vtac episodes and syncope [ ] Unable to determine In addition, please specify: Present on Admission (POA): [ x ] Yes [ ] No [ ] Unable to determine CLINICAL INDICATORS - SIGNS / SYMPTOMS / LABS 06/07 (ANDREA) LAST DEFIBRILLATOR SHOCK HE HAD WAS 1 YEAR BACK, HAS MULTIPLE EPISODES OF V-TACH MOSTLY NONSUSTAINED LOW RATE ON AICD INTERROGATION. 06/07 TROPONIN I 0.039 06/11 DIAGNOSTIC LEFT HEART CATH: LVEF 25% GLOBAL HYPOKINESIS, LEFT MAIN NORMAL, LAD 30% MID CIRCUMFLEX CO DOMINANT, NO OBSTRUCTIVE PLAQUE, RCA SMALL LONG LESION 80%, LESION APPROX 50MM. RISK: HX CEREBROVASCULAR DISEASE, HTN,CARDIOMYOPATHY (H & P/ MARA) AICD PLACEMENT TREATMENTS: CARDIOLOGY/EP CONSULT CAROTID DOPPLER 06/07 HEART CATH 06/11 THANK YOU ! MIKEL (This form is maintained as a part of the permanent medical record) 2014 [employer], [employer]. All Rights Reserved [email or web address] [phone] MTDD
--- NOTE | 2019-06-11 17:18 | EKG ---
Test Reason : SYNCOPE Blood Pressure : / mmHG Vent. Rate : 050 BPM Atrial Rate : 050 BPM P-R Int : 194 ms QRS Dur : 104 ms QT Int : 428 ms P-R-T Axes : 088 -56 020 degrees QTc Int : 390 ms Atrial-paced rhythm Pulmonary disease pattern Left anterior fascicular block Nonspecific T wave abnormality Abnormal ECG Confirmed by CLARICE ALVES ([id number]), fan mail editor PAULINA VILLALTA ([id number]) on 06/11/2019 5:18:15 PM Referred By: Confirmed By:CLARICE ALVES
--- NOTE | 2019-06-11 17:41 | PRG ---
DATE OF SERVICE: 06/11/2019 SUBJECTIVE: Mr. Forbes seems to be doing well after his heart catheterization. During heart catheterization at the time of the lidocaine injection for the catheter access, there were symptoms of prodrome and symptoms of syncope as in the [facility] when he came in. His blood pressure was low and mildly bradycardic as well. He seems to recover quickly with instituted bolus and atropine injection. Currently, he has no signs of angina and no PND, orthopnea, or lower extremity edema. Groin catheterization sites without reaction. No further dizziness or loss of consciousness. Rest of 12-point review of system otherwise unremarkable. OBJECTIVE: VITAL SIGNS: Blood pressure is 110/69, heart rate 53, respiratory rate 16, and temperature 98.1 degrees Fahrenheit. GENERAL: Alert and oriented man, in no apparent distress. NECK: Supple. Jugular veins not distended. CHEST: Coarse, no crackles. Left precordial ICD insertion site is well healed. ABDOMEN: Benign. Bowel sounds are positive. EXTREMITIES: Lower extremities without edema, clubbing, or cyanosis. Pulses are adequate. NEUROLOGIC: The patient is nonfocal. MUSCULOSKELETAL: Without joint swelling or deformity. SKIN: Without rash. DATABASE: Telemetry strips reveal sinus rhythm, no ventricular tachyarrhythmias. The heart catheterization today revealed nonocclusive coronary artery disease only. LVEF by echo from 06/07/2019 is 25% to 30%. ASSESSMENT AND PLAN: Mr. Forbes is a 63-year-old man with likely nonischemic cardiomyopathy with nonocclusive coronary disease on heart catheterization today, severely reduced left ventricular function, prior implantable cardiac defibrillator implant, who was admitted after a syncopal spell at [facility]. The episode appears to be vasovagal effect, recurred at the time of IV starting, clearly vasovagal in etiology as well during heart catheterization this morning. Although, he had mild bradycardia, the blood pressure was low as well, likely combination made him pass out on the table as well, and very likely similar episodes could happen at the [facility] as well prior to admission. I doubt ventricular arrhythmias is a main cause for this, even though nonsustained episodes are noted at times on the telemetry and ICD monitor. For now, ATP therapies are successful and no aggressive antiarrhythmia medication is necessary. Dr. Rausch is planning to change his heart failure medication to reduce hypotensive episodes and I agree with the increasing base pacing rate and adding rate response to it. I discussed this with a [employer] mechanical service representative, who should be able to interrogate and make these changes on this [employer] device. I also discussed with Dr. Rausch and the family on this finding. I have to see him back as an outpatient for routine monitoring of his ICDs. We discussed the etiology of vasovagal syncope and potentially avoidance of syncope by supine posture and avoiding dehydration. Job ID: [id number]
[2019-06-11] MEDS: Tamsulosin HCl 0.4 MG CAP PO SCH (20:38)
[2019-06-11] MEDS ORDERED: Rosuvastatin 20 MG TAB PO SCH (21:00)
[2019-06-12] MEDS ORDERED: Aspirin 81 mg Enteric Coated Tablet PO SCH (09:00)
[2019-06-12] MEDS ORDERED: Lisinopril 5 MG TAB PO SCH (09:00)
[2019-06-12] MEDS: Clopidogrel Bisulfate 75 MG TAB PO SCH (09:33)
--- NOTE | 2019-06-12 09:51 | PRG ---
DATE OF SERVICE: 06/12/2019 SUBJECTIVE: Mr. Forbes feels very well today. He said he felt better, really almost immediately after the pacemaker was changed from a lower rate of 50 to 60. Also, the pacemaker defibrillator was placed in the rate responsive mode. OBJECTIVE: VITAL SIGNS: His blood pressure today is 120 systolic. Pulse is 60. LUNGS: Clear. CARDIAC: Normal S1, normal S2. ABDOMEN: Soft, nontender. EXTREMITIES: There is no edema. ASSESSMENT: 1. Cardiomyopathy with an ejection fraction of 25%. 2. Single-vessel coronary artery disease 80% long lesion in a small diameter vessel in the right coronary artery, codominant vessel, with an anomalous takeoff, best treated medically. 3. Previous pacemaker defibrillator. Rate has been increased. 4. Neurocardiogenic syncope. PLAN: 1. He is to go home on lisinopril 5 mg twice a day. 2. Metoprolol succinate 50 mg a day, dose maybe increased later. 3. Lisinopril 5 mg twice a day, dose maybe increased later. 4. Crestor 20 mg a day. 5. Plavix 75 mg a day. 6. He has to see us in the office in a couple of weeks. Job ID: [id number]
--- NOTE | 2019-06-12 10:05 | PDOC.HOSPP ---
- Subjective Subjective: was seen today at 10AM, i the follow-up of syncope. He does not have any complaints. - Objective Vital Signs & Weight: Vital Signs (12 hours) Temp Pulse Resp BP Pulse Ox 06/12/19 09:33 60 06/12/19 07:37 98.1 F 60 16 125/81 99 06/12/19 04:00 97.8 F 60 18 124/63 98 06/11/19 23:43 98.3 F 60 18 129/76 98 Weight Weight 160 lb 12.8 oz I&O: 06/11/19 06/12/19 06/13/19 06:59 06:59 06:59 Intake Total 1620 1090 Output Total 400 Balance 1220 1090 Result Diagrams: 06/11/19 09:51 06/11/19 09:51 ROS - Review of Systems All systems: All other ROS were reviewed and found negative. - Medication Medications: Active Medications Generic Name Dose Route Start Last Admin Trade Name Freq PRN Reason Stop Dose Admin Aspirin 81 mg 06/12/19 09:00 06/12/19 09:49 Ecotrin PO 81 mg DAILY MAHIN Administration Clopidogrel Bisulfate 75 mg 06/07/19 09:00 06/12/19 09:33 Plavix PO 75 mg DAILY MAHIN Administration Lisinopril 5 mg 06/12/19 09:00 06/12/19 09:33 Zestril PO 5 mg BID MAHIN Administration Metoprolol Succinate 50 mg 06/12/19 09:00 06/12/19 09:49 Toprol Xl PO 50 mg DAILY MAHIN Administration Pantoprazole Sodium 40 mg 06/07/19 09:00 06/12/19 09:34 Protonix PO 40 mg DAILY MAHIN Administration Rosuvastatin Calcium 20 mg 06/11/19 21:00 06/11/19 20:38 Crestor PO 20 mg HS MAHIN Administration Senna/Docusate Sodium 2 tab 06/06/19 22:28 06/11/19 16:06 Senokot S PO 2 tab BID PRN Administration Constipation Sodium Chloride 10 ml 06/08/19 09:00 06/12/19 09:34 Flush - Normal Saline IVF 10 ml Q12HR MAHIN Administration Tamsulosin HCl 0.4 mg 06/09/19 21:00 06/11/19 20:38 Flomax PO 0.4 mg HS MAHIN Administration - Exam Eye: PERRL, anicteric sclera Respiratory: CTAB, no wheezes, no rales, no ronchi, normal chest expansion, no tachypnea, normal percussion Gastrointestinal: soft, non-tender, non-distended, normal bowel sounds, no palpable masses Extremities: no cyanosis, no clubbing, no edema Psychiatric: normal affect, A&O x 3 Hosp A/P (1) Syncope Code(s): R55 - SYNCOPE AND COLLAPSE Status: Resolved (2) BPH (benign prostatic hyperplasia) Code(s): N40.0 - BENIGN PROSTATIC HYPERPLASIA WITHOUT LOWER URINRY TRACT SYMP Status: Acute Qualifiers: Lower urinary tract symptom presence: symptoms absent Qualified Code(s): N40.0 - Benign prostatic hyperplasia without lower urinary tract symptoms (3) Cardiomyopathy Code(s): I42.9 - CARDIOMYOPATHY, UNSPECIFIED Status: Chronic (4) HTN (hypertension) Code(s): I10 - ESSENTIAL (PRIMARY) HYPERTENSION Status: Chronic Qualifiers: Hypertension type: essential hypertension Qualified Code(s): I10 - Essential (primary) hypertension (5) V-tach Code(s): I47.2 - VENTRICULAR TACHYCARDIA Status: Resolved - Plan * Syncope- this is felt to be due to Vaso-vagal response * He has been cleared for discharge by Cardiology
[2019-06-12 12:16] VITALS: BP 145/80; TEMP 98
--- NOTE | 2019-06-12 12:43 | DIS ---
DATE OF ADMISSION: 06/07/2019 DATE OF DISCHARGE: 06/12/2019 DISCHARGE DISPOSITION: Home. PRIMARY DISCHARGE DIAGNOSES: 1. Syncope. 2. Cardiomyopathy. 3. Hypertension. 4. Dyslipidemia. 5. Benign prostatic hypertrophy. DISCHARGE MEDICATIONS: Include, 1. Crestor 20 mg at bedtime. 2. Toprol-XL 50 mg daily. 3. Lisinopril 5 mg twice daily. 4. Plavix 75 mg a day. 5. Aspirin 81 mg daily. 6. Flomax 0.4 mg twice a day. 7. Protonix 40 mg daily. 8. Baclofen 10 mg q.8 as needed. PROCEDURES DONE DURING THE ADMISSION: The patient had a cardiac catheterization, which showed an EF, which was estimated at 25% with global hypokinesis. The left main was normal. There was 30% stenosis in the mid LAD. The RCA, there was a small, long segment of 80% stenosis. The patient also had an echocardiogram in which the ejection fraction was estimated at 25% to 30%. There was some E to A flow reversal noted suggestive of diastolic dysfunction. CODE STATUS: Full code. ALLERGIES: NO KNOWN DRUG ALLERGIES. HOSPITAL COURSE: Mr. Forbes is a pleasant 63-year-old gentleman, who presented to the emergency room after having a syncopal episode at [facility]. The full details of which are outlined in the history and physical. He was admitted and evaluated by both Cardiology as well as Electrophysiology. He underwent cardiac catheterization and echocardiogram with the above-mentioned results. He did have some RCA occlusion, which was thought to be not amenable to intervention. This will be treated medically. Also, he did have some short courses of ventricular tachycardia, which was asymptomatic and not felt to be the etiology of the syncope. The syncope is thought to be vasovagal in nature. He had an episode during his hospitalization. He has been instructed on some nonpharmacological ways of managing this and his medications were adjusted and he has subsequently able to be discharged home in stable condition. Job ID: [id number]
== END 2019-06-12 14:17 | disposition home or self-care (01) | DRG 281 ==
LOC: ERS 20:12 → 2SW 23:37 → OBSVTOIN 06-07 15:08 → 2NO 06-07 18:26
PROVIDERS: ADMIT Internal Medicine; ATTEND Internal Medicine
PROC: 4A023N8 Measurement of Cardiac Sampling and Pressure, Bilateral, Percutaneous Approach (ICD-10-PCS; principal; 2019-06-11)
PROC: B2151ZZ Fluoroscopy of Left Heart using Low Osmolar Contrast (ICD-10-PCS; 2019-06-11)
PROC: B2111ZZ Fluoroscopy of Multiple Coronary Arteries using Low Osmolar Contrast (ICD-10-PCS; 2019-06-11)
DX: I47.2 Ventricular tachycardia (principal); I21.A1 Myocardial infarction type 2; I42.9 Cardiomyopathy, unspecified; R55 Syncope and collapse; I10 Essential (primary) hypertension; G89.29 Other chronic pain; M54.9 Dorsalgia, unspecified; N40.0 Benign prostatic hyperplasia without lower urinary tract symptoms; Z86.73 Personal history of transient ischemic attack (TIA), and cerebral infarction without residual deficits; Z79.899 Other long term (current) drug therapy; Z79.01 Long term (current) use of anticoagulants; Z95.810 Presence of automatic (implantable) cardiac defibrillator
CPT/HCPCS: 36415; 71045; 76942; 80048; 80053; 80061; 81001; 83880; 84484; 85025; 93005; 93306; 93458; 93798; 93880; 99152; 99153; C1769; J0461; J1644; J1650; J2001; J2250; J3010; Q9967

== ENCOUNTER 2019-07-23 11:52 | Inpatient (IN) | payer MEDICARE ==
[2019-07-23] MEDS ORDERED: Ondansetron PF 4 MG/2 ML Vial ONE (12:57)
[2019-07-23] MEDS ORDERED: Morphine 4 MG/ML VIAL ONE (12:57)
[2019-07-23 14:17] LABS: CKMB 1.3 ng/mL (0-6.6)
[2019-07-23] MEDS ORDERED: Enoxaparin Sodium 80 MG/0.8 ML SYRINGE ONE (14:24)
[2019-07-23 16:13] VITALS: BMI 25.4
[2019-07-23] MEDS ORDERED: Ondansetron PF 4 MG/2 ML Vial IVP PRN (19:30)
[2019-07-23 19:49] LABS: Troponin I 0.029 ng/mL (< 0.028)
[2019-07-23] MEDS: Tamsulosin HCl 0.4 MG CAP PO SCH (20:41)
[2019-07-23] MEDS: Enoxaparin Sodium 40 MG/0.4 ML SYRINGE SC SCH (20:41)
[2019-07-23] MEDS: Rosuvastatin 20 MG TAB PO SCH (20:41)
[2019-07-23] MEDS ORDERED: Senokot 8.6 MG TAB PO SCH (21:00)
--- NOTE | 2019-07-23 22:07 | ULT ---
EXAM: Bilateral lower extremity venous ultrasound HISTORY: Pulmonary embolism; Recent fall COMPARISON: None TECHNIQUE: Multiplanar grayscale and color Doppler images were obtained in a bilateral lower extremit y venous ultrasound. Spectral analysis of the Doppler waveforms were performed. FINDINGS: The bilateral common femoral vein, profunda femoral veins, superficial femoral veins, and p opliteal veins are normal in appearance without visible thrombus. These vessels demonstrate normal compression, flow, and augmentation. The bilateral posterior tibial veins and greater saphenous veins are patent without evidence of throm bus. IMPRESSION: No evidence of DVT.
--- NOTE | 2019-07-23 22:28 | HP ---
CHIEF COMPLAINT: Syncope. HISTORY OF PRESENT ILLNESS: Mr. Forbes is a very pleasant 63-year-old gentleman with past medical history significant for coronary artery disease with left heart catheterization last month by Dr. Rausch, ischemic cardiomyopathy with EF of 25% status post AICD placement in 2014, and previous history of neurocardiogenic syncope diagnosed last month at this facility, who presented to the emergency department in [place] with another episode of carlo syncope. The patient was in his usual state of health up until this morning. He got up, was in the kitchen to take his medications, and had a prodrome of nausea and lightheadedness just prior to his syncopal event. The patient fell forward in the kitchen biting his lower lip. His and son were in the house, although did not witness the event. They did hear him fall. The states that he regained consciousness within about 30 seconds, and asked what it happened. He denies any prodrome of chest pain or shortness of breath. He had no palpitations. He was brought to the [place] Emergency Department for further workup and treatment. In that ER, he did have a CT of his facial bones which showed no obvious acute fracture. He did have a large hematoma and soft tissue swelling anterior to the mandible into the right of the midline. Head CT showed no acute intracranial abnormality or injury. He was transferred to our facility for higher level of care. CTA of the chest was also performed, which showed a very small peripheral pulmonary artery embolus, which the radiologist felt was likely chronic. As mentioned, the patient was admitted here at this facility about a month ago with similar complaints. At that time, his AICD was interrogated and showed no arrhythmogenic cause of syncope. His lacemaker, Dr. Rausch was consulted and the patient underwent left heart catheterization, which showed a long 80% stenosis in the RCA, not amenable to intervention. He had a mild stenosis noted in the mid LAD. His echocardiogram showed an ejection fraction of 25% to 30% with grade 2 diastolic dysfunction. It was felt at that time that the patient had had an episode of neurocardiogenic syncope. REVIEW OF SYSTEMS: A 12-point review of systems performed and is negative except that stated above. The patient has been in his usual state of health. He has been able to participate in cardiac rehab 2 times a week. He specifically denies any chest pain, shortness of breath, orthopnea, or palpitations. No recent illnesses or sick contacts. PAST MEDICAL HISTORY: 1. Ischemic cardiomyopathy with EF of 25% to 30%, status post [employer] AICD placement in 2014. 2. Paroxysmal nonsustained ventricular tachycardia. 3. Hypertension. 4. Benign prostatic hypertrophy. 5. CVA in 2016. 6. Gastroesophageal reflux disease. PAST SURGICAL HISTORY: 1. ICD placement in 2014. 2. Left heart catheterization last month with Dr. Rausch. 3. Hernia repair. SOCIAL HISTORY: The patient lives at home with his family. He denies any drug, alcohol, or tobacco abuse. He is currently retired. FAMILY HISTORY: Noncontributory. ALLERGIES: NO KNOWN DRUG ALLERGIES. CURRENT MEDICATIONS: 1. Omeprazole 40 mg one tablet p.o. daily. 2. Plavix 75 mg daily. 3. Fish oil 1000 mg orally once daily. 4. Crestor 20 mg p.o. at bedtime. 5. Tamsulosin 0.4 mg orally b.i.d. 6. Lisinopril 5 mg orally once daily. 7. Metoprolol succinate 50 mg one tablet daily. 8. Aspirin 81 mg daily. 9. Ranitidine 150 mg once daily at bedtime. 10. Senokot orally once daily. PHYSICAL EXAMINATION: VITAL SIGNS: Blood pressure is 154/93, pulse 60, O2 saturation is 100% on room air, respirations 20, temperature 97.9. GENERAL: This is an male who appears his stated age, resting comfortably in bed, in no acute distress. HEENT: The patient has a large hematoma present on his left bottom lip. NECK: Trachea is midline. No JVD. No carotid bruits. CV: S1 and S2. Regular rate and rhythm. No appreciable murmurs, rubs, or gallops. LUNGS: Regular respiratory rate and pattern, overall clear to auscultation bilaterally. ABDOMEN: Positive bowel sounds. Soft, nontender. EXTREMITIES: +1 pitting edema bilaterally. Both lower extremities are warm and well perfused. NEUROLOGICAL: Cranial nerves 2 through 12 are grossly intact. The patient is nonfocal. LABORATORY DATA: White blood cell count 3.5, hemoglobin 13, hematocrit 41.3%, platelets are 140. Sodium 143, potassium 3.9, chloride 108, BUN is 18, creatinine 1.36. AST 38, ALT 48, alkaline phosphatase 65. Troponin 0.029, 0.020 respectively. ASSESSMENT: 1. Syncope-the patient was admitted just last month for similar episode, and neurocardiogenic syncope was presumed. 2. Ischemic cardiomyopathy with EF 25%. 3. History of ventricular tachycardia. 4. AICD, [employer] in-situ. 5. Coronary artery disease, long 80% RCA lesion not amenable to intervention. 6. Hypertension. 7. BPH, on tamsulosin. 8. Small peripheral PA embolus/appears chronic. PLAN: At this time, we will admit the patient to the observation unit. We will not repeat full syncopal workup, as the patient was just admitted last month and had echo and carotid Dopplers. We will interrogate the patient's device to rule out any arrhythmogenic cause of syncope. The patient does not appear to be orthostatic for orthostatic vital signs. Given his presenting symptoms and risk factors and his cardiac history, we will consult his primary lacemaker, Dr. Rausch for any further recommendations for this patient. Regarding the small PE that was found, the patient does have mild bilateral swelling in his lower extremities, and is sedentary per his . We will perform bilateral venous Doppler to rule out DVTs. GI and DVT prophylaxis have been ordered. We will also order a magnesium level as well. Further recommendations based on hospital course. Job ID: [id number]
[2019-07-24 01:07] LABS: Bacteria/HPF 2+ HPF (None Seen); Bilirubin Negative (Negative); Blood, Urine Trace (Negative); Clarity Clear (Clear); Glucose, Urine (Dipstick) Normal (Negative); Leukocyte 500 Leu/uL (Negative); Nitrite Negative (Negative); Protein, Urine (Dipstick) Negative (Neg-Trace); Squamous Epithelial None Seen HPF (0-3); Urobilinogen Normal mg/dL (Less than 2); WBC/HPF Greater than 50 HPF (0-3)
[2019-07-24 01:08] LABS: Urine Culture Reflex Yes Yes
[2019-07-24] MEDS: cefTRIAXone\\ROCEPHIN 1 GM in Sodium Chloride 0.9% 100 ML IVPB SCH (03:19)
[2019-07-24 04:37] LABS: #Eosinphils 0.1 thou/uL (0.0-0.7); #Lymphocytes 1.1 thou/uL (1.20-3.40); #Monocytes 0.3 thou/uL (0.11-0.59); #Neutrophils 3.3 thou/uL (1.40-6.50); %Basophils 0.4 % (0.0-1.0); %Eosinophils 1.8 % (0.0-10.0); %Lymphocytes 22.5 % (21.0-51.0); %Monocytes 5.9 % (0.0-10.0); %Neutrophils 69.4 % (42.0-75.0); Hemoglobin 12.1 g/dL (14.0-18.0); Mean Corpuscular HGB CONC 33.4 g/dL (32.0-36.0); Mean Corpuscular Hemoglobin 24.1 pg (27.0-31.0); Mean Corpuscular Volume 72.2 fL (78.0-98.0); Mean Platelet Volume 9.8 fL (7.4-10.4); Platelet Count 141 thou/uL (130-400); RBC Distribution Width 12.6 % (11.5-14.5); Red Blood Cell (RBC) Count 5.02 mill/uL (4.70-6.10); White Blood Cell (WBC) Count 4.8 thou/uL (4.8-10.8)
[2019-07-24 05:38] LABS: Anion Gap 10 mmol/L (10-20); BUN (Urea Nitrogen) 12 mg/dL (8.4-25.7); Calc. Creatinine Clearance 65 mL/min (70-130); Calcium 8.7 mg/dL (7.8-10.44); Carbon Dioxide 26 mmol/L (23-31); Chloride 107 mmol/L (98-107); Estimated GFR-MDRD 80; Glucose 85 mg/dL (80-115); Potassium 3.7 mmol/L (3.5-5.1); Sodium 139 mmol/L (136-145)
[2019-07-24] MEDS: HYDROcodone/Acetaminophen 5/325 mg Tablet PO PRN (08:17)
[2019-07-24] MEDS: Fish Oil 1,000 MG CAP PO SCH (08:18)
[2019-07-24] MEDS: Lisinopril 5 MG TAB PO SCH (08:18)
[2019-07-24] MEDS: Famotidine 20 MG TAB PO SCH ×2 (08:18→20:11)
[2019-07-24] MEDS: Senokot 8.6 MG TAB PO SCH (08:18)
[2019-07-24] MEDS: Tamsulosin HCl 0.4 MG CAP PO SCH ×2 (08:18→20:11)
[2019-07-24] MEDS: Multivit, Therapeutic 1 TAB PO SCH (08:19)
[2019-07-24] MEDS: Clopidogrel Bisulfate 75 MG TAB PO SCH (11:01)
[2019-07-24] MEDS: Aspirin 81 mg Enteric Coated Tablet PO SCH (11:01)
--- NOTE | 2019-07-24 13:32 | CON ---
DATE OF CONSULTATION: 07/24/2019 REASON FOR CONSULTATION: Mr. Forbes is a pleasant 63-year-old man, who had a syncopal episode. HISTORY OF PRESENT ILLNESS: Mr. Forbes was recently hospitalized here. He had a syncopal episode that was ultimately found to be vasovagal. He has a nonischemic cardiomyopathy. 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 Despite numbing the skin, he had a vagal response before. Even any deep numbing was done and just the skin numb and he had a vagal episode, we had to give him atropine for. The patient was admitted at that point with a vagal episode. The patient had another episode of feeling weak and lightheaded and suddenly lost consciousness and hit his head as outlined in the chart. Blood pressure had been high prior to that episode. PHYSICAL EXAMINATION: VITAL SIGNS: Today, blood pressure 132/84, pulse 60. HEENT: Eyes; sclerae nonicteric. Mouth; mucous membranes moist. NECK: Supple. No lymphadenopathy. LUNGS: Clear. CARDIAC: Normal S1. Normal S2. There is no murmur, rub, or gallop. ABDOMEN: Soft, nontender. EXTREMITIES: Warm and dry. No clubbing, cyanosis, or edema. LABORATORY DATA: Peak troponin level is 0.029. Potassium is 3.7. The rhythm shows atrial paced, ventricular sensed rhythm. ASSESSMENT: 1. Recurrent vasovagal syncope. 2. Defibrillator was checked. There are no dysrhythmias. PLAN: 1. We stressed again to the patient if he can possibly sit down quickly, he will prevent injuries, although he did not have a lot of warning on this occasion. 2. We will increase paced rate up to 70, try to reduce the risk of a sudden onset of syncope. 3. Need to reduce tamsulosin once a day. Needs to get with urologist. Ideally would go off tamsulosin on some other agent. Job ID: [id number]
--- NOTE | 2019-07-24 18:04 | PDOC.HOSPP ---
- Subjective Encounter Date: 07/24/19 Encounter Time: 18:00 Subjective: f/u for recurrent syncope likely related to ventricular arrhythmia. Feel ok overall but has lip pain after hitting face while falling at home. - Objective Vital Signs & Weight: Vital Signs (12 hours) Temp Pulse Resp BP BP BP BP 07/24/19 15:14 98.4 F 70 16 129/81 07/24/19 11:45 98.4 F 60 16 132/84 07/24/19 08:18 60 07/24/19 07:15 97.8 F 60 16 121/66 137/77 136/79 Pulse Ox 07/24/19 15:14 98 07/24/19 11:45 99 07/24/19 08:18 07/24/19 07:15 98 Weight Weight 153 lb 1.6 oz I&O: 07/23/19 07/24/19 07/25/19 06:59 06:59 06:59 Intake Total 1270 Output Total 1050 Balance 220 Result Diagrams: 07/24/19 04:17 07/24/19 04:17 Additional Labs: Microbiology 07/24/19 01:08 Urine clean catch Urine Culture - Preliminary Gram Negative [facility] Tests 07/23/19 07/23/19 07/23/19 13:04 16:19 19:09 Troponin I 0.029 H 0.020 0.029 H Radiology Reviewed by me: Yes (LE dopplers - neg for DVT) EKG Reviewed by me: Yes (Tele - A-paced) Hospitalist ROS - Medication Medications: Active Medications Generic Name Dose Route Start Last Admin Trade Name Freq PRN Reason Stop Dose Admin Hydrocodone Bitart/Acetaminophen 1 tab 07/23/19 19:30 07/24/19 08:17 [place] 5/325 PO 1 tab Q4H PRN Administration Moderate Pain (4-6) Aspirin 81 mg 07/24/19 09:00 07/24/19 11:01 Ecotrin PO 81 mg DAILY MAHIN Administration Clopidogrel Bisulfate 75 mg 07/24/19 09:00 07/24/19 11:01 Plavix PO 75 mg DAILY MAHIN Administration Enoxaparin Sodium 40 mg 07/23/19 21:00 07/23/19 20:41 Lovenox SC 40 mg 2100 MAHIN Administration Famotidine 20 mg 07/24/19 09:00 07/24/19 08:18 Pepcid PO 20 mg BID MAHIN Administration Fish Oil 1,000 mg 07/24/19 09:00 07/24/19 08:18 Fish Oil PO 1,000 mg DAILY MAHIN Administration Ceftriaxone Sodium 1 gm/ 100 mls @ 200 mls/hr 07/24/19 04:00 07/24/19 03:19 Sodium Chloride IVPB 100 mls 0400 MAHIN Administration Lisinopril 5 mg 07/24/19 09:00 07/24/19 08:18 Zestril PO 5 mg DAILY MAHIN Administration Metoprolol Succinate 50 mg 07/24/19 09:00 07/24/19 11:01 Toprol Xl PO 50 mg DAILY MAHIN Administration Multivitamins 1 tab 07/24/19 09:00 07/24/19 08:19 Theragran PO 1 tab DAILY MAHIN Administration Pantoprazole Sodium 40 mg 07/24/19 09:00 07/24/19 08:18 Protonix PO 40 mg DAILY MAHIN Administration Rosuvastatin Calcium 20 mg 07/23/19 21:00 07/23/19 20:41 Crestor PO 20 mg HS MAHIN Administration Senna 1 tab 07/24/19 09:00 07/24/19 08:18 Senokot PO 1 tab DAILY MAHIN Administration - Exam General Appearance: NAD, awake alert Eye: PERRL, anicteric sclera ENT - other findings: superficial lower lip laceration, hemostatic, + edema, no missing teeth Neck: supple, symmetric, no JVD, no thyromegaly Heart: RRR, no murmur, no gallops, no rubs, normal peripheral pulses Respiratory: CTAB, no wheezes, no rales, no ronchi, normal chest expansion Gastrointestinal: soft, non-tender, non-distended, normal bowel sounds, no palpable masses Extremities: no cyanosis, no clubbing, no edema Skin: normal turgor, no lesions Neurological: cranial nerve grossly intact, no focal deficits, no new deficit Musculoskeletal: normal tone Psychiatric: normal affect, A&O x 3 Hosp A/P (1) Syncope Code(s): R55 - SYNCOPE AND COLLAPSE Status: Acute Plan: Likely due to ventricular arrhythmia, PM threshold increased, EP/Cardiology following (2) Ventricular tachycardia (paroxysmal) Code(s): I47.2 - VENTRICULAR TACHYCARDIA Status: Acute Plan: Continue Sotalol, ASA/Plavix (3) Ischemic cardiomyopathy Code(s): I25.5 - ISCHEMIC CARDIOMYOPATHY Status: Chronic Plan: Continue ASA/Plavix/Metoprolol/Lisinopril (4) UTI (urinary tract infection) Status: Acute Plan: Suspected, continue Rocephin IV daily, await final identification/sensitivities (5) HTN (hypertension) Code(s): I10 - ESSENTIAL (PRIMARY) HYPERTENSION Status: Chronic Qualifiers: Hypertension type: essential hypertension Qualified Code(s): I10 - Essential (primary) hypertension Plan: Resume home BP regimen - Plan plan discussed w/ family, DVT proph w/SCDs Stable currently Appreciated Cardiology/EP assistance PM reprogrammed per EP recs Local wound care or oral cavity Continue ASA/Plavix Likely home in 24h
[2019-07-24] MEDS ORDERED: Sotalol HCl 80 MG TAB PO SCH (19:45)
[2019-07-24] MEDS: Rosuvastatin 20 MG TAB PO SCH (20:10)
[2019-07-24] MEDS: Enoxaparin Sodium 40 MG/0.4 ML SYRINGE SC SCH (20:11)
[2019-07-25] MEDS: cefTRIAXone\\ROCEPHIN 1 GM in Sodium Chloride 0.9% 100 ML IVPB SCH (04:00)
[2019-07-25] MEDS: Famotidine 20 MG TAB PO SCH ×3 (07:46→20:01)
[2019-07-25] MEDS: HYDROcodone/Acetaminophen 5/325 mg Tablet PO PRN ×2 (07:46→21:19)
[2019-07-25] MEDS: Senokot 8.6 MG TAB PO SCH (07:47)
[2019-07-25] MEDS: Multivit, Therapeutic 1 TAB PO SCH (07:47)
[2019-07-25] MEDS: Sotalol HCl 80 MG TAB PO SCH ×2 (07:47→20:00)
[2019-07-25] MEDS: Fish Oil 1,000 MG CAP PO SCH (07:47)
[2019-07-25] MEDS: Lisinopril 5 MG TAB PO SCH (07:48)
[2019-07-25] MEDS: Aspirin 81 mg Enteric Coated Tablet PO SCH (07:48)
[2019-07-25] MEDS: Clopidogrel Bisulfate 75 MG TAB PO SCH (07:48)
[2019-07-25] MEDS ORDERED: Potassium Chloride 20 MEQ TAB PO SCH (09:00)
--- NOTE | 2019-07-25 09:59 | PRG ---
DATE OF SERVICE: 07/25/2019 SUBJECTIVE: Mr. Forbes is doing a bit well. He says he has some pain in the left great toe, but examining him, he is only minimally tender. He is still having some bleeding from his tongue. No chest pain or pressure. OBJECTIVE: VITAL SIGNS: Blood pressure 148/99. Pulse 70, it is paced, atrial paced, ventricular sensed. LUNGS: Clear. CARDIAC: Normal S1. Normal S2. ABDOMEN: Soft and nontender. EXTREMITIES: There is no edema. LABORATORY DATA: The potassium is 3.7. ASSESSMENT: 1. Syncopal episode, looks like it is related to ventricular arrhythmia. 2. Ventricular tachycardia. 3. Single-vessel coronary artery disease, best treated medically. 4. History of severe orthostatic hypotension. 5. Hypertension. PLAN: 1. Increase metoprolol to 100 mg a day. 2. Replete potassium. 3. He has been started on sotalol. 4. We will monitor him today and to go home tomorrow. Job ID: [id number]
--- NOTE | 2019-07-25 10:08 | PRG ---
DATE OF SERVICE: 07/25/2019 SUBJECTIVE: Mr. Forbes seems to be doing well overnight. No new symptoms noted. OBJECTIVE: VITAL SIGNS: Blood pressure is 142/99, heart rate 69, respiratory rate 16, and temperature 99.1 degrees Fahrenheit. GENERAL: Alert and oriented man, in no apparent distress. NECK: Supple. Jugular veins not distended. CHEST: Coarse. No crackles. HEART: Sounds are regular to rate and rhythm. No murmur or gallop. Precordial ICD insertion site is well healed. EXTREMITIES: Lower extremity, without edema. ABDOMEN: Benign. DATABASE: Telemetry strips reveal no further ventricular arrhythmias. Interrogation of the EKG from 07/25, at 7:19 a.m. reveals atrial paced rhythm, occasional PVCs, and QTc of 442 milliseconds. ASSESSMENT AND PLAN: Mr. Forbes is a 63-year-old man, who has history of nonischemic cardiomyopathy, likely functioning dual-chamber implantable cardioverter-defibrillator in place, had chronic syncopal episodes in the past, diagnosed to be vasovagal, but now admitted after an other syncopal event with significant facial injury associated to rapid ventricular tachycardia. The episode was well detected, and eventually, terminated by device. He has frequent nonsustained or short episodes even on the prior dates as noted on his ICD interrogation. My plan at this point, 1. We will initiate sotalol 120 mg twice a day for now. No proarrhythmia or significant QT prolongation is noted. Continue loading. We will likely be able to discharge him tomorrow, if he remains stable. Monitor for hypertension. 2. Dual-chamber ICD adequate function. 3. History of vasovagal syncope. Avoid dehydration. Consider support stockings. 4. Routine followup in the office. Job ID: [id number] [facility]
--- NOTE | 2019-07-25 11:23 | CON ---
DATE OF CONSULTATION: 07/24/2019 HISTORY OF PRESENT ILLNESS: I am seeing Mr. 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 His problems are: 1. Recurrent syncopal spells. a. Prior history of vasovagal syncope well documented. b. Current syncope though was associated with episodes of ventricular tachycardia with rapid rates requiring ATP therapy and eventual termination after the second try. 2. History of chronic congestive heart failure with nonischemic cardiomyopathy. 3. History of single-vessel coronary artery disease. a. 2D echo from 06/07/2019 shows LVEF of 25% to 30%, moderate LV enlargement, mild MR, [id number] aortic regurgitation, and mild TR. b. Left heart catheterization on 06/07/2019 showed a 25% of LVEF, 8% small elongated RCA lesion. c. Status post dual-chamber ICD implant on December 22, 2014, with a [employer] Energen Mini dual-chamber device. 4. History of hypertension. 5. History of CVA in 2016. 6. History of GERD and BPH. ALLERGIES: NONE NOTED. MEDICATIONS: At home include; 1. Omeprazole. 2. Plavix. 3. Fish oil supplement. 4. Crestor. 5. Tamsulosin. 6. Lisinopril. 7. Metoprolol succinate 50 mg once a day. 8. Aspirin 81 daily. 9. Ranitidine. 10. Senokot. SUBJECTIVE: Mr. Forbes was admitted after an episode of sudden fall as he states he was getting nauseated and dizzy and is walking then suddenly, he fell down and found himself coming back from a passing out spell shortly after that. He did bite his lower lip. Event was not witnessed, but the family heard him fall and the episode did not last beyond 30 seconds. He was brought in by the EMS. CT heads were revealing no acute fracture, but large hematoma of the lip. Transferred to our facility. Since admission, he has been doing fair. 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 ICD was interrogated, see separate note. Dr. Rausch has consulted me, hence the ventricular tachycardia episodes noted on the ICD interrogation. Currently, he is doing well. Denies angina. No CHF like symptoms. No PND, orthopnea, or lower extremity edema. No fever, chills, or cough and rest of 12-point review of system unremarkable. PAST MEDICAL HISTORY: Past history as above. He has been admitted to our facility in May with syncopal spell. At that point, no concomitant ventricular arrhythmias were documented, but he had clear vasovagal spell noted during heart catheterization, venipuncture as well. SOCIAL HISTORY: Lives with his family. Denies EtOH or drug abuse and is retired. FAMILY HISTORY: Not contributory. OBJECTIVE DATA: VITAL SIGNS: Blood pressure is 148/99, heart rate 69, respiratory rate 16, and temperature 99.1 degrees Fahrenheit. GENERAL: Alert and oriented man, in no apparent distress. NECK: Supple. Jugular veins not distended. HEENT: The lip is with hematoma and bandage. CHEST: Coarse. No crackles. HEART: Sounds are regular to rate and rhythm. No murmur or gallop. ABDOMEN: Benign. Bowel sounds positive. EXTREMITIES: Lower extremities without edema, clubbing, or cyanosis. Pulses are adequate. NEUROLOGIC: The patient is nonfocal. MUSCULOSKELETAL: Without joint swelling or deformity. SKIN: Without rash. The ICD insertion site is well healed. DATABASE: EKG reviewed revealing atrial paced rhythm, narrow QRS, the QT is about 400 milliseconds. Occasional PVCs are noted, which appear to be monomorphic. Left bundle inferior axis in morphology. The ICD was interrogated revealing a [employer] Mini ICD with adequate battery voltage with 2.5 years estimated longevity. The parameters are adequate. Sensing 5.4 mV in the atrium and 8 mV in the right ventricle. Impedances are normal at 383 and 448 ohms respectively. Ventricular tachycardia zone is programmed on per monitor at 150 and for therapy at 185 beats per minute. An episode of ventricular tachycardia noted on the day preceding the admission on 07/23/2019 at 7:25 a.m. corresponded to the time of his syncopal spell, sudden rapid ventricular arrhythmia noted with clear VA dissociation, cycle length about 300 milliseconds. ATP therapy was successfully terminating the episodes at the second try. Interrogation of the additional events reveal episodes of ventricular tachycardia since last reset in June, slow ventricular tachycardia episodes are seen. Nonsustained VT episodes are also noted. LABORATORY DATA: White cell count 4.8, hemoglobin 12.1, and platelet count is 141. Sodium 139, potassium 3.7, BUN is 12, and creatinine is 1.12. Troponin I 0.029, 0.02, and 0.029. The chest CT from 07/23/2019, shows no acute traumatic injury, cardiomegaly, small very peripheral pulmonary artery embolus, likely chronic. ASSESSMENT AND PLAN: Mr. Forbes is a 63-year-old man with history of congestive heart failure and one-vessel coronary artery disease, likely nonischemic cardiomyopathy with reduced left ventricular ejection fraction and adequate functioning, dual-chamber implantable cardioverter-defibrillator in place. He has had recurrent syncopal spells, previous diagnosed to be vasovagal, but at this time, also noted to have a concomitant ventricular tachycardia episodes. Further interrogations reveal frequent nonsustained and slightly slower, but short ventricular tachycardia events and the current syncopal spell is associated with for the longer episode about 25 seconds with rapid rates, which responded to the second round of ATP. This clearly could have been the cause of his syncope at this time. At this point, there is no obvious signs of new angina or ischemia involving this event. The episode could have been probed by his extra heartbeats and eventually was well detected and terminated by device. Nevertheless, the duration was likely caused his circulation to collapse transiently until the event terminated. We discussed treatment options. I think it is reasonable at this point to consider suppression, hence his renal function is in normal range and he has no sudden QT prolongation. We will attempt sotalol 120 mg twice a day will be initiated. His vital signs need to be monitored, but right now he is hypertensive. I am expecting him to tolerate it pretty well. In the couple of days, monitoring is reasonable. I discussed this with Dr. Rausch. He is agreeable at this point. No further ischemic evaluation is planned. We will continue to follow up with you. Thank you again for letting me participate in the care of this patient. Job ID: [id number]
--- NOTE | 2019-07-25 16:56 | EKG ---
Test Reason : Blood Pressure : / mmHG Vent. Rate : 068 BPM Atrial Rate : 068 BPM P-R Int : 208 ms QRS Dur : 102 ms QT Int : 416 ms P-R-T Axes : 037 -64 033 degrees QTc Int : 442 ms Electronic atrial pacemaker Left anterior fascicular block T wave abnormality, consider lateral ischemia Abnormal ECG When compared with ECG of 06-JUN-2019 20:33, QT has lengthened Confirmed by DR. Parisa OLIVAREZ ([id number]) on 07/25/2019 4:55:36 PM Referred By: CYNTHIA Confirmed By:DR. Parisa OLIVAREZ
--- NOTE | 2019-07-25 17:24 | PDOC.HOSPP ---
- Subjective Encounter Date: 07/25/19 Encounter Time: 17:20 Subjective: f/u for cardiogenic syncope secondary to V-tach. Adjustments to AICD/PM and initiated on Sotalol. No new issues reported. Feels fine today. - Objective Vital Signs & Weight: Vital Signs (12 hours) Temp Pulse Resp BP Pulse Ox 07/25/19 16:00 98.2 F 72 17 131/88 98 07/25/19 11:12 98.5 F 70 20 115/75 96 07/25/19 07:48 70 07/25/19 07:47 70 07/25/19 07:22 99.1 F 69 16 148/99 H 97 Weight Weight 152 lb 12.8 oz I&O: 07/24/19 07/25/19 07/26/19 06:59 06:59 06:59 Intake Total 1270 1440 Output Total 1050 700 Balance 220 740 Result Diagrams: 07/24/19 04:17 07/24/19 04:17 Additional Labs: Microbiology 07/24/19 01:08 Urine clean catch Urine Culture - Preliminary Presumptive Kleb/Enterobacter 07/24/19 01:08 Urine clean catch Urine Culture - Preliminary Gram Negative [facility] Tests 07/23/19 07/23/19 07/23/19 13:04 16:19 19:09 Troponin I 0.029 H 0.020 0.029 H EKG Reviewed by me: Yes (Tele - Paced in 70's) Hospitalist ROS - Medication Medications: Active Medications Generic Name Dose Route Start Last Admin Trade Name Freq PRN Reason Stop Dose Admin Hydrocodone Bitart/Acetaminophen 1 tab 07/23/19 19:30 07/25/19 07:46 [place] 5/325 PO 1 tab Q4H PRN Administration Moderate Pain (4-6) Aspirin 81 mg 07/24/19 09:00 07/25/19 07:48 Ecotrin PO 81 mg DAILY MAHIN Administration Enoxaparin Sodium 40 mg 07/23/19 21:00 07/24/19 20:11 Lovenox SC 40 mg 2100 MAHIN Administration Famotidine 20 mg 07/24/19 09:00 07/25/19 08:42 Pepcid PO 20 mg BID MAHIN Administration Fish Oil 1,000 mg 07/24/19 09:00 07/25/19 07:47 Fish Oil PO 1,000 mg DAILY MAHIN Administration Ceftriaxone Sodium 1 gm/ 100 mls @ 200 mls/hr 07/24/19 04:00 07/25/19 04:00 Sodium Chloride IVPB 100 mls 0400 MAHIN Administration Lisinopril 5 mg 07/24/19 09:00 07/25/19 07:48 Zestril PO 5 mg DAILY MAHIN Administration Multivitamins 1 tab 07/24/19 09:00 07/25/19 07:47 Theragran PO 1 tab DAILY MAHIN Administration Pantoprazole Sodium 40 mg 07/24/19 09:00 07/25/19 07:47 Protonix PO 40 mg DAILY MAHIN Administration Rosuvastatin Calcium 20 mg 07/23/19 21:00 07/24/19 20:10 Crestor PO 20 mg HS MAHIN Administration Senna 1 tab 07/24/19 09:00 07/25/19 07:47 Senokot PO 1 tab DAILY MAHIN Administration Sotalol HCl 120 mg 07/25/19 09:00 07/25/19 07:47 Betapace PO 120 mg BID MAHIN Administration Tamsulosin HCl 0.4 mg 07/24/19 21:00 07/24/19 20:11 Flomax PO 0.4 mg HS MAHIN Administration - Exam General Appearance: NAD, awake alert Eye: PERRL, anicteric sclera ENT - other findings: + edema of lower lips/abrasion Neck: supple, symmetric, no JVD, no thyromegaly Heart: no gallops, no rubs, normal peripheral pulses Respiratory: CTAB, no wheezes, no rales, no ronchi, normal chest expansion Gastrointestinal: soft, non-tender, non-distended, normal bowel sounds Extremities: no cyanosis, no clubbing, no edema Skin: normal turgor, no lesions Neurological: cranial nerve grossly intact, no focal deficits, no new deficit Musculoskeletal: normal tone, normal strength Psychiatric: normal affect, A&O x 3 Hosp A/P (1) Syncope Code(s): R55 - SYNCOPE AND COLLAPSE Status: Acute Plan: Secondary to #1, continue mgmt as outlined below (2) Ventricular tachycardia (paroxysmal) Code(s): I47.2 - VENTRICULAR TACHYCARDIA Status: Acute Plan: Continue Sotalol 120mg BID, telemetry monitoring (3) Ischemic cardiomyopathy Code(s): I25.5 - ISCHEMIC CARDIOMYOPATHY Status: Chronic Plan: See above (4) UTI (urinary tract infection) Status: Acute Plan: Continue Rocephin IV daily, await final sensitivities (5) HTN (hypertension) Code(s): I10 - ESSENTIAL (PRIMARY) HYPERTENSION Status: Chronic Qualifiers: Hypertension type: essential hypertension Qualified Code(s): I10 - Essential (primary) hypertension Plan: Stable, continue home BP regimen - Plan continue antibiotics, out of bed/ambulate, DVT proph w/SCDs Stable currently Appreciated Cardiology/EP assistance PM reprogrammed per EP recs Local wound care to oral cavity Continue ASA/Plavix Continue Sotalol 120mg BID Likely home in 24h
[2019-07-25] MEDS: Enoxaparin Sodium 40 MG/0.4 ML SYRINGE SC SCH (19:59)
[2019-07-25] MEDS: Rosuvastatin 20 MG TAB PO SCH (19:59)
[2019-07-25] MEDS: Tamsulosin HCl 0.4 MG CAP PO SCH (20:01)
[2019-07-26] MEDS: cefTRIAXone\\ROCEPHIN 1 GM in Sodium Chloride 0.9% 100 ML IVPB SCH (03:47)
[2019-07-26 07:57] VITALS: TEMP 98
[2019-07-26] MEDS: Lisinopril 5 MG TAB PO SCH (10:13)
[2019-07-26] MEDS: Senokot 8.6 MG TAB PO SCH (10:13)
[2019-07-26] MEDS: Multivit, Therapeutic 1 TAB PO SCH (10:14)
[2019-07-26] MEDS: Aspirin 81 mg Enteric Coated Tablet PO SCH (10:14)
[2019-07-26] MEDS: Fish Oil 1,000 MG CAP PO SCH (10:14)
[2019-07-26] MEDS: Sotalol HCl 80 MG TAB PO SCH (10:14)
[2019-07-26] MEDS ORDERED: Colchicine 0.6 MG TAB PO SCH (12:15)
[2019-07-26] MEDS ORDERED: Ibuprofen 800 MG TAB PO SCH (12:15)
[2019-07-26 13:28] VITALS: BP 138/69
--- NOTE | 2019-07-26 18:20 | PRG ---
DATE OF SERVICE: 07/26/2019 SUBJECTIVE: Mr. Forbes seems to be doing well. Yesterday at 4:30 p.m., he had a slow wide-complex rhythm, monomorphic run of PVCs up to 30 beats were seen. The episode was not very rapid and self-terminated. Was asymptomatic. No ICD discharge or therapy was necessary to stop the episode. Otherwise, he is feeling well. OBJECTIVE: VITAL SIGNS: Blood pressure is 138/69, heart rate 70, respiratory rate 16, temperature 98 degrees Fahrenheit. GENERAL: Alert and oriented man, in no apparent distress. NECK: Supple. Jugular veins not distended. CHEST: Coarse without crackles. Pacemaker insertion site is well healed. HEART: Sounds are regular rate and rhythm. No murmur or gallop. ABDOMEN: Benign. Bowel sounds positive. EXTREMITIES: Lower extremities without edema, clubbing, or cyanosis. DATABASE: EKG reviewed, revealing sinus rhythm with QTc not significantly prolonged about 450 msec. Telemetry strips otherwise negative apart from the wide-complex arrhythmia run. ASSESSMENT AND PLAN: Mr. Forbes is a 63-year-old man, who presented with syncope with concomitant ventricular tachycardia on ICD monitor. We initiated sotalol loading and received over 4 dosages without reaction. He still has nonsustained ventricular tachycardia episodes, but not fast enough for syncopal spell or needing therapy. At this point, it is reasonable to continue sotalol therapy. Hence, no significant QT prolongation or proarrhythmia is noted. Implantable cardioverter-defibrillator function is so far adequate. Monitor for further ventricular arrhythmias. Routine followup will be requested in 6 weeks in the office. Job ID: [id number]
--- NOTE | 2019-07-27 10:02 | DIS ---
DATE OF ADMISSION: 07/23/2019 DATE OF DISCHARGE: 07/26/2019 DISCHARGE DIAGNOSES: 1. Cardiogenic syncope, suspected secondary to #2. 2. Paroxysmal ventricular tachycardia. 3. Ischemic cardiomyopathy with ejection fraction of 25% to 30%. 4. Urinary tract infection with Klebsiella oxytoca, pansensitive. 5. Hypertension, stable. 6. Acute gouty arthropathy. CONSULTATIONS: 1. Dr. Poole with Electrophysiology Service. 2. Dr. Rausch with Cardiology Service. PERTINENT LABORATORY AND X-RAY FINDINGS: Troponin I ranged between 0.020 to 0.029, hemoglobin 12.1, hematocrit 36.3. Urine culture dated 07/24/2019, showed greater than 100,000 colonies of Klebsiella oxytoca, pansensitive. CT of the facial bones dated 07/23/2019, showed no acute fracture. Large hematoma and soft tissue swelling of the lower lip. CT angiogram of the chest dated 07/23/2019, showed question of small pulmonary artery embolus at the right lung apex, likely subacute. Portable chest x-ray dated 07/23/2019, showed cardiomegaly without acute infiltrate. HOSPITAL COURSE: The patient was initially admitted to the telemetry unit after presenting status post syncopal episode with trauma to the right lower lip. The patient underwent initial CT imaging of the face and head showing soft tissue swelling without acute intracranial process. The patient underwent general evaluation for syncopal workup and was noted with paroxysmal ventricular tachycardia after interrogation of his [employer] AICD. The patient was evaluated by the Electrophysiology Service with recommendations to adjust his AICD threshold and initiate sotalol. The patient was initiated on sotalol 120 mg b.i.d. with recommendations to continue this therapy on an outpatient basis. The patient received local care to his lip injury status post fall and syncope without further complication. The patient was noted with left great toe pain over 24-48 hour time. Diagnosed with likely gouty arthropathy. The patient will initiate treatment with colchicine 0.6 mg b.i.d. and follow up with his primary care provider for outpatient monitoring. Overall, the patient did remain clinically stable during the hospital course, tolerating regular oral intake and ambulating without assistance or difficulty. Vital signs remained stable at the time of discharge. I have examined the patient at the time of discharge and discussed followup instructions. The patient verbalized understanding and in agreement, ready for discharge on 07/26/2019. DISCHARGE MEDICATIONS: 1. Lisinopril 5 mg p.o. daily. 2. Multivitamin 1 tablet p.o. daily. 3. [place]-3 fatty acids 1000 mg p.o. daily. 4. Protonix 40 mg p.o. daily. 5. Ranitidine 150 mg p.o. daily. 6. Senokot 8.6 mg p.o. daily p.r.n. 7. Tamsulosin 0.4 mg p.o. b.i.d. 8. Enteric-coated aspirin 81 mg p.o. daily. 9. Plavix 75 mg p.o. daily. 10. Colchicine 0.6 mg p.o. b.i.d. x1 week. 11. Levaquin 500 mg p.o. daily x3 days. 12. Metoprolol succinate 50 mg p.o. daily. 13. Crestor 20 mg p.o. at bedtime. 14. Betapace 120 mg p.o. b.i.d. FOLLOWUP: The patient may follow up with Dr. Linda Flores within 7 days of discharge. The patient will follow up with Dr. Poole with Electrophysiology Service within 6 weeks of discharge. CONDITION ON DISCHARGE: Stable. ACTIVITY: Ad-cb. DIET: Regular. CODE STATUS: Full. DISPOSITION: Home on 07/26/2019. TIME SPENT: Total time preparing and coordinating discharge, 35 minutes. Job ID: [id number]
== END 2019-07-26 14:20 | disposition home or self-care (01) | DRG 309 ==
LOC: ERS 11:52 → 2SW 15:48 → OBSVTOIN 15:48 → 2NO 07-25 20:26
PROVIDERS: ADMIT Internal Medicine; ATTEND Internal Medicine
PROC: 4B02XTZ Measurement of Cardiac Defibrillator, External Approach (ICD-10-PCS; principal; 2019-07-25)
DX: I47.2 Ventricular tachycardia (principal); I69.954 Hemiplegia and hemiparesis following unspecified cerebrovascular disease affecting left non-dominant side; I27.82 Chronic pulmonary embolism; N39.0 Urinary tract infection, site not specified; I42.8 Other cardiomyopathies; S01.511A Laceration without foreign body of lip, initial encounter; G89.29 Other chronic pain; M54.9 Dorsalgia, unspecified; I25.10 Atherosclerotic heart disease of native coronary artery without angina pectoris; N40.0 Benign prostatic hyperplasia without lower urinary tract symptoms; K21.9 Gastro-esophageal reflux disease without esophagitis; I50.9 Heart failure, unspecified; I11.0 Hypertensive heart disease with heart failure; S09.8XXA Other specified injuries of head, initial encounter; X58.XXXA Exposure to other specified factors, initial encounter; Z95.810 Presence of automatic (implantable) cardiac defibrillator; Z79.899 Other long term (current) drug therapy; Z79.01 Long term (current) use of anticoagulants; Z79.82 Long term (current) use of aspirin; I45.81 Long QT syndrome
CPT/HCPCS: 36415; 80048; 81001; 82553; 83735; 84550; 85025; 87077; 87086; 87186; 93005; 93010; 93970; 96372; 96374; 96375; J0696; J1650; J2270; J2405; J3490

== ENCOUNTER 2020-01-01 10:32 | Observation (INO) | payer MEDICARE ==
--- NOTE | 2020-01-01 11:31 | RAD ---
EXAM: Single view of the chest HISTORY: Congestion and dyspnea COMPARISON: 07/23/2019 FINDINGS: Single view of the chest shows an enlarged but stable cardiomediastinal silhouette. The pa cemaker is unchanged in position. Retrocardiac opacity is seen which may represent atelectasis or an infiltrate. The bones are unremarkable. IMPRESSION: Left basilar atelectasis versus infiltrate
[2020-01-01 12:34] LABS: #Monocytes 0.3 thou/uL (0.11-0.59); #Neutrophils 3.8 thou/uL (1.40-6.50); %Basophils 0.9 % (0.0-1.0); %Eosinophils 0.4 % (0.0-10.0); %Lymphocytes 18.5 % (21.0-51.0); %Monocytes 6.2 % (0.0-10.0); Hemoglobin 13.9 g/dL (14.0-18.0); Mean Corpuscular HGB CONC 34.2 g/dL (32.0-36.0); Mean Corpuscular Hemoglobin 24.8 pg (27.0-31.0); Mean Corpuscular Volume 72.5 fL (78.0-98.0); Mean Platelet Volume 11.4 fL (7.4-10.4); Platelet Count 113 thou/uL (130-400); RBC Distribution Width 13.5 % (11.5-14.5); Red Blood Cell (RBC) Count 5.62 mill/uL (4.70-6.10); White Blood Cell (WBC) Count 5.2 thou/uL (4.8-10.8)
[2020-01-01 12:49] LABS: MDiff Complete? YES; Microcytosis MODERATE=15-30 cells (100X) (0-5/hpf); Platelet Morphology Comment Appears Decreased; Polychromasia SLIGHT = 2-3 cells (100X) (0-2/hpf); Target Cells SLIGHT = 2-5 cells (100X) (0-1/hpf)
[2020-01-01] MEDS ORDERED: Ondansetron ODT 4 MG TAB PO PRN (12:51)
[2020-01-01] MEDS ORDERED: Acetaminophen 325 MG TAB PO PRN (12:51)
[2020-01-01] MEDS ORDERED: Ondansetron PF 4 MG/2 ML Vial IVP PRN (12:51)
--- NOTE | 2020-01-01 12:57 | PDOC.FPRHP ---
- History of Present Illness Chief Complaint: SOB History of Present Illness: This is a 64yo M presenting to the ER today with a CC of SOB. He reports SOB and increased difficulty breathing for the last 2 days. He reports greater difficulty while lying down flight. He also endorsed a worsening SOB when bending over forward. He states he almost felt like he would "passout" due to loss of breath when lying on his side and bending over. He endorses mild chest pain accompanying his SOB. Chest pain described as worse with deep breath, lasting only a second. He was sitting down when he felt this pain. Has never had these type of symptoms before. He states that he drinks fluids, but thinks he doesn't drink enough. He also endorses sinus congestion. Endorses wheezing. Denies any cough, fever/chills, NVD, abdominal pain. Denies dysuria. Takes all his medications as directed, has not missed any doses. Endorses hx of CVA with left sided deficits - ambulates without assist but has a limp. Patient able to talk in full sentences without issue. Last saw Dr. Rausch in Oct 2019. ED Course: 40IV lasix - Allergies/Adverse Reactions Allergies Allergy/AdvReac Type Severity Reaction Status Date / Time No Known Allergies Allergy Verified 07/23/19 16:34 - Home Medications Medication Instructions Recorded Confirmed Type Tamsulosin HCl 1 capsule PO BID 06/07/19 01/01/20 History Aspirin [Ecotrin Low Strength] 81 mg PO DAILY tab 06/12/19 01/01/20 Rx Clopidogrel Bisulfate [Clopidogrel] 75 mg PO DAILY #30 tablet 06/12/19 01/01/20 Rx Metoprolol Succinate [Toprol XL] 50 mg PO DAILY #30 tab 06/12/19 01/01/20 Rx Lisinopril [Zestril] 5 mg PO DAILY 07/23/19 01/01/20 History Multivitamin [Multi-Vitamin Daily] 1 tab PO DAILY 07/23/19 01/01/20 History [place]-3 Fatty Acids/Fish Oil [Fish 1,000 mg PO DAILY 07/23/19 01/01/20 History Oil 1,000 mg Capsule] Pantoprazole [Protonix] 40 mg PO DAILY 07/23/19 01/01/20 History Sennosides [Senokot] 8.6 mg PO DAILY PRN 07/23/19 01/01/20 History Sotalol HCl [Betapace] 120 mg PO BID #60 tab 07/26/19 01/01/20 Rx - History PMHx: CHF, HTN, chronic low back pain, CVA in 2016 w/ multiple mini strokes - left sided deficits PSHx: pacemaker 2014, hernia repair FHx: Father - of [place] in 60s Social: lives at home with family, denies alcohol/tobacco and drug use - Review of Systems General: denies: fever/chills, weight/appetite/sleep changes, night sweats, fatigue Eyes: denies: vision changes ENT: reports: nasal congestion, rhinorrhea Respiratory: reports: congestion, shortness of breath, exercise intolerance. denies: cough Cardiovascular: reports: chest pain, paroxysmal nocturnal dyspnea, orthopnea. denies: palpitation, edema Gastrointestinal: denies: nausea, vomiting, diarrhea, constipation, abdominal pain Genitourinary: denies: dysuria Skin: denies: rashes, lesions Musculoskeletal: denies: pain, tenderness, stiffness, swelling Neurological: denies: numbness, syncope, seizure, weakness Psychological: denies: anxiety, depression - Vital signs BP: 115/84, Pulse: 73, Resp: 20, Pain: 0, O2 sat: 97 on (Room Air), Time: 2019 13:10. BP: 132/82, Pulse: 84, Resp: 18, Temp: 97.9 (Oral), Pain: 0, O2 sat: 96 on ( Room Air), Time: 01/01/2020 10:34 - Physical Exam Constitutional: NAD, awake, alert and oriented, well developed HEENT: normocephalic and atraumatic, PERRLA, EOMI, grossly normal vision, grossly normal hearing, MMM -HEENT: cataracts b/l, poor dentition Neck: supple, FROM Chest: no-tender to palpation, no lesions Heart: RRR, pulses present, no edema -Heart: [id number] noted on exam Lungs: CTAB, no respiratory distress, good air movement, no rales/rhonchi, no wheezing Abdomen: soft, non-tender, bowel sounds present, no masses/distention Musculoskeletal: normal structure, normal tone, ROM grossly normal -Musculoskeletal: paraspinous tenderness more on L>R Neurological: no focal deficit Skin: no rash/lesions, good turgor, capillary refill <2 seconds Heme/Lymphatic: no unusual bruising or bleeding, no purpura, no petechia Psychiatric: normal mood and affect, good judgment and insight, intact recent and remote memory FMR H&P: Results - Labs Result Diagrams: 01/01/20 12:09 01/01/20 11:19 Lab results: WBC 5.2 thou/uL (4.8-10.8) 01/01/20 12:09 Hgb 13.9 g/dL (14.0-18.0) L 01/01/20 12:09 Hct 40.8 % (42.0-52.0) L 01/01/20 12:09 MCV 72.5 fL (78.0-98.0) L 01/01/20 12:09 Plt Count 113 thou/uL (130-400) L 01/01/20 12:09 Neutrophils % 74.0 % (42.0-75.0) 01/01/20 12:09 B-Natriuretic Peptide 1023.0 pg/mL (0-100) H 01/01/20 11:19 - Radiology Interpretation Chest x-ray Status: report reviewed by me (left basilar atelectasis vs infiltrate) FMR H&P: A/P - Problem List (1) Acute on chronic systolic CHF (congestive heart failure) Current Visit: Yes Status: Acute Code(s): I50.23 - ACUTE ON CHRONIC SYSTOLIC (CONGESTIVE) HEART FAILURE (2) BPH (benign prostatic hyperplasia) Current Visit: No Status: Acute Code(s): N40.0 - BENIGN PROSTATIC HYPERPLASIA WITHOUT LOWER URINRY TRACT SYMP Qualifiers: Lower urinary tract symptom presence: symptoms absent Qualified Code(s): N40.0 - Benign prostatic hyperplasia without lower urinary tract symptoms (3) Cardiomyopathy Current Visit: No Status: Chronic Code(s): I42.9 - CARDIOMYOPATHY, UNSPECIFIED (4) HTN (hypertension) Current Visit: No Status: Chronic Code(s): I10 - ESSENTIAL (PRIMARY) HYPERTENSION Qualifiers: Hypertension type: essential hypertension Qualified Code(s): I10 - Essential (primary) hypertension (5) History of ischemic cerebrovascular accident (CVA) with residual deficit Current Visit: Yes Status: Acute Code(s): I69.30 - UNSPECIFIED SEQUELAE OF CEREBRAL INFARCTION (6) CAD (coronary artery disease) Current Visit: Yes Status: Acute Code(s): I25.10 - ATHSCL HEART DISEASE OF [place] CORONARY ARTERY W/O ANG PCTRS - Plan Patient is a 64M with a PMHx of HTN, chronic back pain, ischemic CVA with residual L-sided weakness, and prior AICD placement for HFrEF that is admitted for: #Acute on Chronic Systolic CHF exacerbation - patient has hx of HFrEF with AICD placement in 2014 - BNP 1023 - s/p lasix 40mg IV in ED, though lasix naive outpatient - CXR showing atelectasis vs infiltrate - initial trop neg - continue IV lasix 20 qd - continue home metoprolol - consider adding aldactone to regimen and d/c with prn lasix #Microcytic Anemia -stable -colonoscopy within the last 5 years, reported 3 polyps -will work up with iron studies #CAD -was discharged prior hosp on rosuvastatin; will look into this further -continue ACEI, 81mg asa #HTN -continue home med: lisinopril #BPH -patient urinates 2-3x/night -continue home tamsulosin DVT ppx: lovenox Diet: HH Code: FULL Dispo: admit to tele, obs for diuresis and monitoring of respiratory status Case discussed with Dr. Vazquez FMR H&P: Upper Level - Plan Date/Time: 01/01/20 1255 I, Emily Osorio MD, have evaluated this patient and agree with findings/plan as outlined by restaurant management internship resident. Pertinent changes/additions are listed here. This is a 64yo M with PMH significant for HFrEF presenting for SOB over the last few days. Reports difficulty especially lying flat. Patient' SOB so severe he felt he could pass out about 2 times over the last couple days. Reports mild chest pain, worse with inspiration that only lasted one sec. Denies being on lasix at home. Last saw Dr. Rausch in Oct 2019. See restaurant management internship note for full history PE: General: NAD HEENT: NC/AT, EOMI Pulm: CTAB, no crackles or wheezes Cardio: gallop heard, RRR, no TTP of ant chest Neuro: non focal, normal gait MSK: no edema noted Psych: AXOX3 Plan: CHF Exacerbation, HFrEF Patient presenting with elevated BNP, SOB, orthopnea. Echo in Jun 2019 showing EF 25-30%, LV mod increased, diastolic dysfunction. s/p IV lasix in the ED. - Admit to tele, obs - Will give lasix as needed, will start patient on 20mg lasix PO PRN for diuresis - Continue home meds for CHF, consider adding aldactone to regimen Single vessel CAD - Continue home meds, on statin, ASA, and ACEI Microcytic Anemia - at baseline from previous, can work up further with iron studies. Colonoscopy within 5 years with 3 polyps. Recommend repeat outpatient. HTN - continue home meds Code: FULL VTE: lovenox Diet: HH Dispo: admit to tele, obs; Anticipate discharge <48hrs Case discussed with Dr. Vazquez Addendum - Attending - Attending Attestation Date/Time: 01/01/20 [id number] I personally evaluated the patient and discussed the management with Dr. Edmond/ Devon I agree with the History, Examination, Assessment and Plan documented above with any addition or exceptions noted below. 64yo AA male with 3 days progressive nocturnal orthopnea. Patient PMHX with HFrEF s/p AICD [address] Rausch and [facility] heart cath 06/2019 with global hypokinesis EF 25% LAD with 30% mid lesion no obstructive plaque HX HTN,Chronic LBP,CVA left hemiparesis 2015, BPH patient PCP Dr Flores will admit IV diuresis trend troponins. see resident note for further details
[2020-01-01] MEDS ORDERED: Furosemide 40 MG/4 ML VIAL ONE (13:01)
[2020-01-01 14:05] LABS: ALT (SGPT) 78 U/L (8-55); AST (SGOT) 37 U/L (5-34); Albumin 3.4 g/dL (3.4-4.8); Alkaline Phosphatase 63 U/L (40-110); Anion Gap 14 mmol/L (10-20); BUN (Urea Nitrogen) 14 mg/dL (8.4-25.7); Bilirubin, Total 0.6 mg/dL (0.2-1.2); Calc. Creatinine Clearance 0 mL/min (70-130); Calcium 8.4 mg/dL (7.8-10.44); Carbon Dioxide 22 mmol/L (23-31); Chloride 111 mmol/L (98-107); Estimated GFR-MDRD 73; Glucose 138 mg/dL (80-115); Potassium 4.5 mmol/L (3.5-5.1); Protein, Total 5.4 g/dL (5.8-8.1); Sodium 142 mmol/L (136-145)
[2020-01-01 15:52] VITALS: BMI 24.6
[2020-01-01 15:55] LABS: Hemoglobin A1c 5.4 % (4.0-6.0)
[2020-01-01 16:09] LABS: Magnesium 1.9 mg/dL (1.6-2.6); Phosphorus 3.1 mg/dL (2.3-4.7)
[2020-01-01 16:29] LABS: HBSAg Index 0.28 S/CO (0-0.99); Hep B Surf Ag Non-Reactive S/CO (NonReactive); Hep C IgG Ab Non-Reactive (NonReactive); Hep C Index 0.06 S/CO (0-0.79)
[2020-01-01 16:30] LABS: HBCM Index 0.09 S/CO (0-0.79); Hepatitis B Core IgM Abs Non-Reactive (NonReactive)
[2020-01-01 16:33] LABS: Iron 86 ug/dL (65-175); Iron Binding Capacity, Total 263 mcg/dL (261-462); Transferrin, Serum 210 mg/dL (163-344)
[2020-01-01] MEDS ORDERED: Nitroglycerin 0.4 MG TAB (25 Tab Bottle) SL PRN (16:41)
[2020-01-01] MEDS ORDERED: Nitroglycerin 2% Ointment 1 INCH/1 GM Packet TOP PRN (16:41)
[2020-01-01] MEDS ORDERED: Senokot 8.6 MG TAB PO PRN (17:03)
[2020-01-01 18:30] LABS: Hep A IgM AB Non-Reactive (NonReactive)
[2020-01-01] MEDS: Tamsulosin HCl 0.4 MG CAP PO SCH (19:46)
[2020-01-02 04:46] LABS: #Eosinphils 0.1 thou/uL (0.0-0.7); #Lymphocytes 1.4 thou/uL (1.20-3.40); #Monocytes 0.4 thou/uL (0.11-0.59); #Neutrophils 2.6 thou/uL (1.40-6.50); %Basophils 0.8 % (0.0-1.0); %Eosinophils 2.1 % (0.0-10.0); %Lymphocytes 31.1 % (21.0-51.0); %Monocytes 9.2 % (0.0-10.0); %Neutrophils 56.8 % (42.0-75.0); Hemoglobin 13.5 g/dL (14.0-18.0); Mean Corpuscular HGB CONC 34.2 g/dL (32.0-36.0); Mean Corpuscular Hemoglobin 24.8 pg (27.0-31.0); Mean Corpuscular Volume 72.4 fL (78.0-98.0); Mean Platelet Volume 11.5 fL (7.4-10.4); Platelet Count 103 thou/uL (130-400); RBC Distribution Width 13.2 % (11.5-14.5); Red Blood Cell (RBC) Count 5.45 mill/uL (4.70-6.10); White Blood Cell (WBC) Count 4.5 thou/uL (4.8-10.8)
[2020-01-02 05:04] LABS: Anion Gap 10 mmol/L (10-20); BUN (Urea Nitrogen) 12 mg/dL (8.4-25.7); Calc. Creatinine Clearance 61 mL/min (70-130); Calcium 8.4 mg/dL (7.8-10.44); Carbon Dioxide 28 mmol/L (23-31); Chloride 108 mmol/L (98-107); Estimated GFR-MDRD 81; Glucose 89 mg/dL (80-115); Potassium 3.8 mmol/L (3.5-5.1); Sodium 142 mmol/L (136-145)
--- NOTE | 2020-01-02 05:29 | PDOC.FM ---
- Subjective Subjective: Patient reports that he feels much better this morning. He was able to sleep lying down last night and reports that he slept well. Discussed his rosuvastatin and he reports that he had been on it previously with a physician a few years ago but has not been prescribed/been taking it lately - Objective Vital Signs & Weight: Vital Signs (12 hours) Temp Pulse Resp BP BP Pulse Ox 01/02/20 04:20 98.0 F 70 16 127/96 H 97 01/01/20 23:30 98.6 F 69 14 111/89 97 01/01/20 19:10 98.1 F 69 16 114/95 H 98 Weight Weight 65.317 kg I&O: 12/31/19 01/01/20 01/02/20 06:59 06:59 06:59 Intake Total 1420 Output Total 700 Balance 720 Result Diagrams: 01/02/20 04:28 01/02/20 04:28 EKG Reviewed by me: Yes (a-paced, 16 beats v tach last night) Phys Exam - Physical Examination Constitutional: NAD HEENT: moist MMs, sclera anicteric Neck: supple, full ROM Respiratory: no wheezing slight crackles RLL Cardiovascular: RRR, no significant murmur Gastrointestinal: soft, non-tender Musculoskeletal: no edema, pulses present Neurological: non-focal, moves all 4 limbs Psychiatric: normal affect, A&O x 3 Skin: no rash, normal turgor Dx/Plan (1) Acute on chronic systolic CHF (congestive heart failure) Code(s): I50.23 - ACUTE ON CHRONIC SYSTOLIC (CONGESTIVE) HEART FAILURE Status : Acute (2) BPH (benign prostatic hyperplasia) Code(s): N40.0 - BENIGN PROSTATIC HYPERPLASIA WITHOUT LOWER URINRY TRACT SYMP Status: Acute Qualifiers: Lower urinary tract symptom presence: symptoms absent Qualified Code(s): N40.0 - Benign prostatic hyperplasia without lower urinary tract symptoms (3) Cardiomyopathy Code(s): I42.9 - CARDIOMYOPATHY, UNSPECIFIED Status: Chronic (4) HTN (hypertension) Code(s): I10 - ESSENTIAL (PRIMARY) HYPERTENSION Status: Chronic Qualifiers: Hypertension type: essential hypertension Qualified Code(s): I10 - Essential (primary) hypertension (5) History of ischemic cerebrovascular accident (CVA) with residual deficit Code(s): I69.30 - UNSPECIFIED SEQUELAE OF CEREBRAL INFARCTION Status: Acute (6) CAD (coronary artery disease) Code(s): I25.10 - ATHSCL HEART DISEASE OF [place] CORONARY ARTERY W/O ANG PCTRS Status: Acute - Plan Plan: Patient is a 64M with a PMHx of HTN, chronic back pain, ischemic CVA with residual L-sided weakness, and prior AICD placement for HFrEF that is admitted for: #Acute on Chronic Systolic CHF exacerbation - patient has hx of HFrEF with AICD placement in 2014 - BNP 1023 - s/p lasix 40mg IV in ED, though lasix naive outpatient - CXR showing atelectasis vs infiltrate - initial trop neg -I: 1420, O: 700, though it doesn't appear that output in ED was documented - continue IV lasix 20 qd - continue home metoprolol - consider adding aldactone to regimen and d/c with prn lasix #Microcytic Anemia, likely anemia of chronic disease -stable -colonoscopy within the last 5 years, reported 3 polyps -iron studies suggest anemia of chronic disease #CAD -continue ACEI, 81mg asa -will have pt f/u with pcp about statin use #HTN -continue home med: lisinopril #BPH -patient urinates 2-3x/night -continue home tamsulosin DVT ppx: lovenox Diet: HH Code: FULL Dispo: admit to tele, obs for diuresis and monitoring of respiratory status; likely d/c later today Addendum - Attending - Attending Attestation Date/Time: 01/02/20 1221 I personally evaluated the patient and discussed the management with Dr. Edmond I agree with the History, Examination, Assessment and Plan documented above with any addition or exceptions noted below. Recommend f/u Heart failure clinic and aldactone added HFrEF rx regimen will see PCP as well. Patient counseled to volume and salt restricted diet consider statin given prior CVA. Elevated LFts further evaluation.
[2020-01-02 06:04] LABS: HIV (1/2) Antibody/Antigen Non-Reactive (NonReactive); HIV 1/2 INDEX 0.09 S/CO (<1.00)
[2020-01-02] MEDS ORDERED: Spironolactone 25 MG TAB PO SCH (08:00)
[2020-01-02 08:08] VITALS: TEMP 97.5
[2020-01-02] MEDS ORDERED: Clopidogrel Bisulfate 75 MG TAB PO SCH (09:00)
[2020-01-02] MEDS ORDERED: Lisinopril 5 MG TAB PO SCH (09:00)
[2020-01-02] MEDS ORDERED: Enoxaparin Sodium 40 MG/0.4 ML SYRINGE SC SCH (09:00)
[2020-01-02] MEDS ORDERED: Aspirin 81 mg Enteric Coated Tablet PO SCH (09:00)
[2020-01-02] MEDS ORDERED: Furosemide 20 MG/2 ML VIAL SLOW IVP SCH (09:00)
[2020-01-02] MEDS: Tamsulosin HCl 0.4 MG CAP PO SCH (09:05)
[2020-01-02 10:57] LABS: Syphilis Antibody Nonreactive (Nonreactive); Syphilis Antibody Index 0.05 S/CO (<1.00 Non-Reactive)
[2020-01-02 12:07] VITALS: BP 128/99
--- NOTE | 2020-01-03 11:53 | DIS ---
DATE OF ADMISSION: 01/01/2020 DATE OF DISCHARGE: 01/02/2020 ADMITTING RESIDENT: Sola Edmond MD ADMITTING ATTENDING: Sergio Vazquez MD. DISCHARGE RESIDENT: Sola Edmond MD. DISCHARGE ATTENDING: Sergio Vazquez MD. CONSULTS: None. PROCEDURES: None. PRIMARY DIAGNOSES: 1. [id number] systolic. 2. Congestive heart failure exacerbation. 3. Microcytic anemia. SECONDARY DIAGNOSES: 1. Coronary artery disease. 2. Hypertension. 3. Benign prostatic hypertrophy. DISCHARGE MEDICATIONS: 1. Furosemide 20 mg p.o. daily prn 2. Aspirin 81 mg p.o. daily. 3. Clopidogrel 75 mg p.o. daily. 4. Lisinopril 5 mg p.o. daily. 5. Metoprolol succinate 50 mg p.o. daily. 6. Multivitamin 1 p.o. daily. 7. [place]-3 fatty acids 1000 mg p.o. daily. 8. Protonix 40 mg p.o. daily. 9. Senokot. 10. Aldactone 12.5 mg p.o. daily. 11. Tamsulosin 0.4 mg p.o. daily. DISCONTINUED MEDICATIONS: 1. Home sotalol. 2. Acetaminophen p.r.n. 3. Lovenox. 4. Nitroglycerin patch. 5. Nitro paste. 6. Zofran p.r.n. HISTORY OF PRESENT ILLNESS/HOSPITAL COURSE: The patient is a 64-year-old male with a past medical history of reduced ejection fraction heart failure, hypertension, chronic back pain, prior CVA with residual left-sided weakness, prior AICD placement, BPH that presented to the ED with a chief complaint shortness of breath. He reported increasing shortness of breath for the last several days, most notably at night when he lays down to rest. He also reported mild chest pain that accompanied his shortness of breath. He was talking in full sentences without issue on exam. He was not found to have significant edema or decreased breath sounds on exam. However on chest x-ray, he was found to have left basilar atelectasis versus infiltrate and his BNP was found to be 1023. He was not on Lasix at home for his CHF, so 40 mg IV Lasix was given in the ED and 20 mg of Lasix was given the next day. Overnight, he utilized the restroom multiple times to urinate and diuresed the excess fluids. On admission, the patient was also found to have microcytic anemia that was stable. The patient had reported that he had a colonoscopy in the last 5 years, on the last one he did have 3 polyps. He was encouraged that he discuss further colonoscopies with his primary care physician. On further lab work, his iron studies suggested that he has anemia of chronic disease. During the hospitalization, it was also discussed with the patient that he had been on rosuvastatin at least at one point during his history, and the patient did confirm that he was on rosuvastatin prescribed by a prior physician. Due to his previous history of a stroke and CAD, it was recommended that he follow up with his primary care physician and discuss restarting a statin, as it is unknown as to the reason why the statin was discontinued in the first place. On the day of discharge, the patient reportedly had diuresed a significant amount of fluid and he was able to the sleep overnight lying down flat comfortably. He was comfortable to go home with followup with his primary care physician. It was discussed with the patient that we were going to prescribe him a p.r.n. Lasix dose, so that if he starts to feel fluid overloaded and/or starts to have feelings of orthopnea then he could utilize Lasix in order to help prevent future hospitalizations. The patient was agreeable with the plan of care. DISPOSITION: Stable. DISCHARGE INSTRUCTIONS: 1. Location: Home. 2. Diet: Heart healthy. 3. Activity: As tolerated. 4. Follow up with Dr. Flores within 1 week, with Dr. Rausch in 2 to 3 weeks for a cardiac rehab. It should be noted that the patient was connected with the Heart Failure Clinic during the hospitalization and he was encouraged to follow up with cardiac rehab. Job ID: [id number] MTDD
--- NOTE | 2020-01-06 01:42 | EKG ---
Test Reason : Blood Pressure : / mmHG Vent. Rate : 073 BPM Atrial Rate : 073 BPM P-R Int : 218 ms QRS Dur : 108 ms QT Int : 424 ms P-R-T Axes : 036 -54 130 degrees QTc Int : 467 ms Electronic atrial pacemaker Incomplete right bundle branch block Left anterior fascicular block Possible Anterior infarct , age undetermined T wave abnormality, consider lateral ischemia Abnormal ECG Confirmed by ASHLY SHABAZZ ([id number]), magazine editor PAULINA VILLALTA ([id number]) on 01/06/2020 1:42:10 AM Referred By: Confirmed By:ASHLY Bazzi
== END 2020-01-02 13:25 | disposition home or self-care (01) ==
LOC: ERS 10:32 → ERHOLD 12:55 → 2SW 15:26
PROVIDERS: ADMIT Family Medicine; ATTEND Family Medicine
DX: I11.0 Hypertensive heart disease with heart failure (principal); I50.23 Acute on chronic systolic (congestive) heart failure; D50.9 Iron deficiency anemia, unspecified; I25.10 Atherosclerotic heart disease of native coronary artery without angina pectoris; N40.0 Benign prostatic hyperplasia without lower urinary tract symptoms; G89.29 Other chronic pain; M54.5 Low back pain; I42.9 Cardiomyopathy, unspecified; I69.354 Hemiplegia and hemiparesis following cerebral infarction affecting left non-dominant side; Z79.02 Long term (current) use of antithrombotics/antiplatelets; Z79.82 Long term (current) use of aspirin; Z79.899 Other long term (current) drug therapy; Z95.810 Presence of automatic (implantable) cardiac defibrillator
CPT/HCPCS: 71045; 80048; 80053; 80074; 82728; 83036; 83540; 83735; 83880; 84100; 84145; 84484; 85025 ×2; 86780; 87389; 93005; 93798; 96372; 96374; 96376; 99285; G0378 ×3; 36415; 83550; 84466; J1650; J1940

== ENCOUNTER 2021-02-01 08:02 | Emergency (ER) | payer MEDICARE ==
[2021-02-01 09:44] LABS: Bilirubin Negative (Negative); Blood, Urine Negative (Negative); Clarity Clear (Clear); Glucose, Urine (Dipstick) Normal (Negative); Ketone, Urine 20 mg/dL (Negative); Leukocyte Negative Leu/uL (Negative); Nitrite Negative (Negative); Protein, Urine (Dipstick) Negative (Neg-Trace); Specific Gravity, Urine 1.019 (1.002-1.036); Urobilinogen Normal mg/dL (Less than 2); pH, Urine 6.5 (5.0-9.0)
== END 2021-02-01 10:26 | disposition home or self-care (01) ==
LOC: ERS 08:02
DX: K59.00 Constipation, unspecified (principal); R20.2 Paresthesia of skin; I10 Essential (primary) hypertension; Z79.899 Other long term (current) drug therapy; Z79.82 Long term (current) use of aspirin
CPT/HCPCS: 74022; 81003

== ENCOUNTER 2021-02-24 08:40 | Outpatient (CLI) | payer MEDICARE ==
[2021-02-24 22:34] LABS: SARS-CoV-2 PCR by NAA Not Detected (NotDetected)
== END 2021-02-24 08:41 | disposition home or self-care (01) ==
LOC: LABBT 08:40
PROVIDERS: ATTEND Internal Medicine
DX: Z01.812 Encounter for preprocedural laboratory examination (principal); K21.9 Gastro-esophageal reflux disease without esophagitis; K59.00 Constipation, unspecified; R10.84 Generalized abdominal pain; Z86.010 Personal history of colon polyps; Z20.822 Contact with and (suspected) exposure to COVID-19
CPT/HCPCS: U0003; U0005; 87635

== ENCOUNTER 2021-02-27 07:36 | Day surgery (SDC) | payer MEDICARE ==
[2021-02-25 12:00] VITALS: BMI 22.4
[2021-02-27] MEDS ORDERED: Fentanyl 100 MCG/2 ML VIAL ONE (09:41)
[2021-02-27] MEDS ORDERED: PHENYLEPHRINE-NS 100 MCG/ML 10 ML SYRINGE ONE (09:51)
[2021-02-27] MEDS ORDERED: ePHEDrine Sulfate 50 MG/10 ML VIAL ONE (09:51)
[2021-02-27] MEDS ORDERED: PROPOFOL 200 MG/20 ML VIAL ONE (09:51)
[2021-02-27] MEDS ORDERED: Lidocaine 1% PF 5 ML VIAL ONE (09:51)
== END 2021-02-27 11:40 | disposition home or self-care (01) ==
LOC: SDC 07:36
PROVIDERS: ATTEND Internal Medicine
PROC: 0DJ08ZZ Inspection of Upper Intestinal Tract, Via Natural or Artificial Opening Endoscopic (ICD-10-PCS; principal; 2021-02-27)
PROC: 0DBK8ZX Excision of Ascending Colon, Via Natural or Artificial Opening Endoscopic, Diagnostic (ICD-10-PCS; 2021-02-27)
PROC: 0DBH8ZX Excision of Cecum, Via Natural or Artificial Opening Endoscopic, Diagnostic (ICD-10-PCS; 2021-02-27)
PROC: 0DBL8ZX Excision of Transverse Colon, Via Natural or Artificial Opening Endoscopic, Diagnostic (ICD-10-PCS; 2021-02-27)
DX: K63.5 Polyp of colon (principal); D17.5 Benign lipomatous neoplasm of intra-abdominal organs; K21.9 Gastro-esophageal reflux disease without esophagitis; K59.00 Constipation, unspecified; R10.84 Generalized abdominal pain; I11.0 Hypertensive heart disease with heart failure; I50.9 Heart failure, unspecified; E78.00 Pure hypercholesterolemia, unspecified; I25.10 Atherosclerotic heart disease of native coronary artery without angina pectoris; Z86.010 Personal history of colon polyps; Z86.73 Personal history of transient ischemic attack (TIA), and cerebral infarction without residual deficits; Z79.02 Long term (current) use of antithrombotics/antiplatelets; Z79.82 Long term (current) use of aspirin; Z79.899 Other long term (current) drug therapy; Z95.810 Presence of automatic (implantable) cardiac defibrillator
CPT/HCPCS: 88305; J2704; J3010